=== PATIENT | male | born 1960 | race Caucasian/White ===

== ENCOUNTER 2020-04-07 10:48 | Observation (INO) | payer OTHER, SELFPAY ==
[2020-04-07] VITALS (12 sets, daily range): BP systolic 126–165; BP diastolic 66–103; PULSE 56–83; RESP 12–20; TEMP 36.6–37.1; O2SAT 62–100; BMI 57.4; BMI 56.2; BMI 56.3
--- NOTE | 2020-04-07 11:07 | EKG12_ITS ---
Test Reason : CP Blood Pressure : / mmHG Vent. Rate : 053 BPM Atrial Rate : 053 BPM P-R Int : 180 ms QRS Dur : 092 ms QT Int : 430 ms P-R-T Axes : 040 -46 003 degrees QTc Int : 403 ms Sinus bradycardia Left anterior fascicular block Abnormal ECG Confirmed by FLORINA DELAROSA, KUSUM ([id number]), news videotape editor JOSE FRY ([id number]) on 04/08/2020 12:58:42 PM Referred By: Confirmed By:STACEY DU MD
--- NOTE | 2020-04-07 11:14 | ED.VIS.CHEST ---
History of Present Illness Chief Complaint: Back Informant: Patient Onset: Days - 4 Activity at onset: Light Activity, Rest - this AM Timing: Intermittent, Lasts - not sure Quality: - - discomfort Location: - - upper mid abd / lower mid chest Current Severity: Gone Maximum Severity: Mild Worsened By: - - unknown. Not Worsened By: Breathing Relieved By: Nothing Associated Symptoms: Nausea, Diaphoresis, Lightheadedness, - - left arm aching. Negative for: Cough, Fever, Acid Reflux Narrative: Patient states he has been having episodes of discomfort and basically points to his entire mid torso, for the past 3 to 4 days. He states that he was just feeling very poorly and went to [facility] emergency room, he said he had at least one CT scan in addition to blood work and they wanted to send him to [facility] for further heart evaluation but he refused and went home. He started feeling more poorly this morning along with aching in his jaw and left upper extremity and sweating which is new, he states he has been having low back discomfort in his left low back for 1 week of unknown cause, no injury that he knows of and it does not necessarily get worse with moving around, no radiation down his leg or upper back discomfort, none of it is pleuritic. He had no urinary symptoms until this morning he had dysuria. No hematuria. He tested negative for Covid 3 days ago at [facility]. CVD Risk Factors: Hypertension, Diabetes PE Risk Factors: Negative for: Recent Travel/Surgery, Recenet Immobilization, Prior DVT or PE, Cancer, OCP + Smoking + >/=35 - Past Medical History (1) GERD (gastroesophageal reflux disease) Status: Chronic (2) Hiatal hernia Status: Chronic (3) Hypertension Status: Chronic (4) Type II diabetes mellitus Status: Chronic Past Medical History - Allergies and Home Meds Allergies/Adverse Reactions: Allergies No Known Allergies Allergy (Verified 04/07/20 10:49) Primary Care Physician: Stoney Horn MD [Primary Care Provider] - Surgical History: noncontributory Smoking Status: Unknown if ever smoked - Family History Maternal Family History: Reports: Hypertension Paternal Family History: Reports: No pertinent history Sibling Family History: Reports: Heart Disease, - - His younger brother had heart attack in his 40s. Review of Systems General: Reports: Malaise, Sweats. Denies: Chills, Fever Eyes: Denies: Visual changes - bilaterally, Diplopia ENT: Denies: Bilateral ear pain, Rhinorrhea, Sore throat Cardiovascular: Reports: Chest pain. Denies: Palpitations Respiratory: Denies: Dyspnea, Cough, Dyspnea on exertion Gastrointestinal: Reports: Abdominal pain, Nausea. Denies: Vomiting, Diarrhea, Melena, Hematochezia Genitourinary: Denies: Dysuria, Hematuria, Frequency Musculoskeletal: Reports: Back pain. Denies: Myalgias, Swelling, Extremity Pain Skin: Denies: Rash, Wounds Neurological: Reports: Headache. Denies: Weakness, Numbness Physical Exam Vital Signs/Narrative: Vital Signs Temp Pulse Resp BP Pulse Ox 04/07/20 10:49 97.9 F 65 17 139/89 H 99 Inital Vital Signs reviewed: Yes General: Well nourished, Well developed, Obese, No Acute Distress Head: Normocephalic, Atraumatic Eyes: Perrl, EOMI ENT: Moist mucous membranes, No rhinorrhea Neck: Supple, Nontender Cardiovascular: Regular rate, Regular rhythm, No murmurs Respiratory: No distress, CTA bilaterally, Chest nontender Abdomen: Soft, Nontender, Nondistended, Normal bowel sounds. Negative for: Pulsatile mass Back: Normal Inspection, - - Mildly point tender, left paraspinal lumbosacral soft tissues below the pelvic brim. Negative for: CVA tenderness, Spinal tenderness Extremities: Nontender, No edema. Negative for: Calf Tenderness Skin: Normal color, No rash, No Trauma Neurological: Alert, Oriented x3, Cranial nerves II-XII grossly intact, Normal Strength, Normal Sensation, Normal Gait Psychological: Normal affect, Normal Mood Diagnostic/Tx/Re-eval 04/07/20 11:50 Chest 1 View (Portable) [RAD] Stat Laboratory Results 04/07/20 04/07/20 04/07/20 11:00 11:30 11:30 WBC 9.4 RBC 4.54 L Hgb 13.3 Hct 42.3 MCV 93.2 MCH 29.3 MCHC 31.4 L RDW Std Deviation 47.3 H RDW Coeff of Vanesa 13.9 Plt Count 255 MPV 10.3 Immature Gran % (Auto) 0.400 Neut % (Auto) 78.3 H Lymph % (Auto) 12.0 L Angelina % (Auto) 7.9 Eos % (Auto) 0.9 Baso % (Auto) 0.5 Absolute Neuts (auto) 7.4 Absolute Lymphs (auto) 1.13 Nucleated RBC % 0 APTT 28.0 Sodium Potassium Chloride Carbon Dioxide Anion Gap BUN Creatinine Estim Creat Clear Calc Est GFR (MDRD) Af Amer Est GFR (MDRD) Non-Af BUN/Creatinine Ratio Glucose Calcium Troponin I Urine Color Yellow Urine Clarity Clear Urine pH 5.0 Ur Specific Viking 1.020 Urine Protein 15 H Urine Glucose (UA) Normal Urine Ketones 5 H Urine Occult Blood 10 H Urine Nitrite Negative Urine Bilirubin Negative Urine Urobilinogen Normal Ur Leukocyte Esterase 500 H Urine RBC 0 SEEN Urine WBC 50-100 SEEN Ur Squamous Epith Cells 0 SEEN Urine Bacteria 2+ Urine Mucus 0 SEEN 04/07/20 11:30 WBC RBC Hgb Hct MCV MCH MCHC RDW Std Deviation RDW Coeff of Vanesa Plt Count MPV Immature Gran % (Auto) Neut % (Auto) Lymph % (Auto) Angelina % (Auto) Eos % (Auto) Baso % (Auto) Absolute Neuts (auto) Absolute Lymphs (auto) Nucleated RBC % APTT Sodium 140 Potassium 3.9 Chloride 108 H Carbon Dioxide 26.0 Anion Gap 6 BUN 12 Creatinine 1.15 Estim Creat Clear Calc 69.65 Est GFR (MDRD) Af Amer 83 Est GFR (MDRD) Non-Af 69 BUN/Creatinine Ratio 10.4 Glucose 111 H Calcium 9.0 Troponin I < 0.015 Urine Color Urine Clarity Urine pH Ur Specific Viking Urine Protein Urine Glucose (UA) Urine Ketones Urine Occult Blood Urine Nitrite Urine Bilirubin Urine Urobilinogen Ur Leukocyte Esterase Urine RBC Urine WBC Ur Squamous Epith Cells Urine Bacteria Urine Mucus - Rhythm Strip Rhythm Strip: Sinus Rhythm Rate: 53 Ectopy: None - EKG Initial EKG Interpretation: Sinus Rhythm, No Acute Injury Pattern, LAFB Prior: Unchanged Treatment: Aspirin, - - rocephin BELEN Risk: >/= 3RF, Severe Angina </=24 hours Score: 2 - Medical Decision Making Patient's urine does appear to be infected, however I do not know that this infection is necessarily causing his thoracic symptoms and discomfort in his left arm. Certainly anginal equivalent is possible here, and his left low back pain could be caused by urinary tract infection or certainly could be musculoskeletal since it is lower than his kidney and is reproducible with palpation on my exam, and he does not necessarily have pyelonephritis on my exam. Antibiotics were started, urine culture was sent, and I think admitting him to observation for a rule out plus or minus provocative testing would be reasonable. After nitroglycerin, the patient has no more arm discomfort, jaw discomfort, chest, or epigastric discomfort. He just has the low back discomfort which is not severe. ED Disposition - Plan for ED Patient: Disposition: Acute Care Hospital [facility] Diagnosis: Chest pain, unspecified, Urinary tract infection Referrals: Stoney Horn MD [Primary Care Provider] -
[2020-04-07] MEDS: Aspirin 81 MG TAB.CHEW 324 MG PO (11:24)
[2020-04-07] MEDS: Ondansetron 4 MG/2 ML Vial IV (11:31)
[2020-04-07] MEDS: 0.9% Normal Saline 1,000 ML 150 ML IV (11:32)
[2020-04-07 11:46] LABS: Mucous, Urine 0 SEEN /hpf (<or=2+); Red Blood Cells-Urine 0 SEEN /hpf (0-5); Squamous Epithelial Cells - UA 0 SEEN /hpf (0-5)
[2020-04-07 11:48] LABS: Color, Urine Yellow (Yellow); Glucose, Dipstick Normal (Normal); Ketone-Dipstick 5 mg/dl (Negative); Leukocyte Esterase-Dipstick 500 /ul (Negative); Nitrite-Dipstick Negative (Negative); Occult Blood-Urine 10 /ul (Negative); Protein-Dipstick 15 mg/dl (Negative); Urine Bilirubin Dipstick Negative (Negative); Urine Clarity Clear (Clear); Urine Urobilinogen Normal (Normal)
--- NOTE | 2020-04-07 11:50 | RAD_ITS ---
STUDY: X-RAY CHEST REASON FOR EXAM: Male, 59 years old. CHEST AND LEFT ARM PAIN TECHNIQUE: Frontal view of the chest COMPARISON: May 23 2014 FINDINGS: Examination is technically suboptimal due to patient''s large body habitus. The lungs are clear and expanded. There is no demonstrated pleural abnormality. Normal size heart. Normal mediastinum and mckenna. Normal visualized pulmonary arteries. Normal visualized aortic arch and descending thoracic aorta. Normal visualized thoracic spine. Normal visualized ribs, clavicles, and shoulders. There is no demonstrated abnormality of the visualized soft tissue structures of the upper abdomen. RAD/Chest 1 View (Portable) IMPRESSION: Normal x-ray examination of the chest. Electronically Signed: Susan Lantigua, at 12:29 EST Tel , Service support ,
[2020-04-07 11:55] LABS: Bacteria 2+ /hpf (None Seen); White Blood Cells 50-100 SEEN /hpf (0-5)
[2020-04-07 11:55] LABS: Absolute Lymphocyte Count 1.13 X10^3/uL (0.83-4.51); Absolute Neutrophil Count 7.4 X10^3/uL (2.0-7.7); Basophil# 0.05 X10^3/uL; Basophil% 0.5 % (0-1); Eosinophil# 0.08 X10^3/uL; Eosinophils% 0.9 % (0-5); Hematocrit 42.3 % (40-54); Hemoglobin 13.3 g/dL (13.0-16.5); Lymphocyte # 1.13 X10^3/ul (4.0); Mean Corp Hgb Conc 31.4 g/dL (32-36); Mean Corpuscular Hgb 29.3 pg (27.0-32.0); Mean Corpuscular Volume 93.2 fL (80-94); Mean Platelet Vol. 10.3 fl (6.2-12.0); Monocyte# 0.74 X10^3/uL; Monocyte% 7.9 % (0-10); NRBC Flagged by Analyzer 0 % (0-5); Neutrophil # 7.37 X10^3/uL (2.7-7.7); Neutrophil % 78.3 % (47-70); Platelet Count 255 K/mm3 (150-450); RBC Distribution Width CV 13.9 % (11.6-14.6); RBC Distribution Width SD 47.3 fl (35.1-43.9); Red Blood Count 4.54 M/mm3 (4.6-6.2); White Blood Count 9.4 K/mm3 (4.4-11.0)
[2020-04-07 12:14] LABS: Anion Gap 6 (5-15); BUN 12 mg/dL (7-18); BUN/Creat Ratio 10.4 RATIO (10-20); Chloride 108 mmol/L (98-107); Creatinine, Serum 1.15 mg/dL (0.70-1.30); EST Glomerular Filtration Rate 69 mL/min (>60); Est Glom Filt Rate - Afr Amer 83 mL/min (>60); Estimated Creatinine Clearance 69.65 ml/min; Glucose 111 mg/dL (74-106); Potassium 3.9 mmol/L (3.5-5.1); Sodium Level 140 mmol/L (136-145)
--- NOTE | 2020-04-07 12:54 | NURSING ---
125 alicia obs cp, uti
[2020-04-07] MEDS: Ceftriaxone 1 GM/50 ML BAG IV (12:55)
--- NOTE | 2020-04-07 14:23 | HP.PCM_ITS ---
Problem List (1) Chest pain Status: Acute (2) Urinary tract infection Status: Acute (3) GERD (gastroesophageal reflux disease) Status: Chronic (4) Hiatal hernia Status: Chronic (5) Hypertension Status: Chronic (6) Type II diabetes mellitus Status: Chronic History of Present Illness Date of Admission: 04/07/20 Chief Complaint: Chest pain The patient is a 59 year old M with past medical history of type 2 diabetes, morbid obesity, hypertension, GERD, hiatal hernia, who presented to the emergency room with chief complaint of chest pain. He has had worsening of associated chest pain that he states began in the evening after eating a cheeseburger. Patient has also complained of ongoing lower back pain in the left paraspinal L1-L2 region that has been going ion since Sunday. He went to the ER in [place] sunday and states he had blood work done and was sent home. Patient initially presented patient describes his chest pain as mid lower chest/midepigastric aching that is constant. He does have some SOB at rest, however his symptoms are not worse with exertion. Yesterday he had a brief episode of heavy sweating. He is concerned he may have heart problems as his two brothers had FL's - the younger brothers age was in the late 40's and the other in his 50s. The patient denies personal heart dz hx. He last had a stress test about 3 years ago that he states was negative. The patient was found to have a UTI in the ER and does report burning with urination and urinary frequency. He does not report dribbling, difficulty emptying, or increased nocturnal urination. No rectal pain. No fever/chills.[] Past Medical History Past Medical History (Chronic Problems): Chronic Problems GERD (gastroesophageal reflux disease) (Chronic) Hiatal hernia (Chronic) Type II diabetes mellitus (Chronic) Hypertension (Chronic) Allergies No Known Allergies Allergy (Verified 04/07/20 10:49) Home Medications: Ambulatory Orders Medication Instructions Recorded Esomeprazole Mag Trihydrate 20 mg PO DAILY 01/02/14 [Nexium] Lisinopril [Zestril] 40 mg PO DAILY 01/02/14 Metoprolol Tartrate [Lopressor 25 mg PO BID 01/02/14 (beta walter)] Pioglitazone [Actos] 15 mg PO DAILY 01/02/14 Aspirin [Aspirin, Baby] 81 mg PO BID 01/03/14 Multivitamins,Therapeutic 1 tablet PO DAILY 01/03/14 [Multivitamin] Nitroglycerin (INPATIENT USE) 0.4 mg SUBLINGUAL Q5M PRN #1 bottle 01/03/14 [Nitrostat] Esomeprazole Mag Trihydrate 40 mg PO QHS 04/07/20 [Nexium] Niacin 500 mg PO QHS 04/07/20 Surgical History: tonsillectomy Psychiatric History: No pertinent psych hx Lives: Spouse/ Significant Other Smoking Status: Former smoker Tobacco Use: Non-smoker - quit 40 years ago, smoked about 3 years. Alcohol: Occasional Drugs: None - *Family History Maternal History Items: Hypertension, - - aneurysm Paternal History Items: - - aneurysm Sibling History Items: Heart Disease - younger brother FL in late 40s, other brother FL in 50s Review of Systems Constitutional: Denies: Chills, Fever, Weight Change HEENT: Denies: Head Aches, Sinus Congestion, Sinus Drainage Cardiovascular: Reports: Chest Pain. Denies: Edema, Heaviness, Light He adedness, Palpitations Respiratory: Reports: Shortness of Breath, Shortness of breath at rest. Denies: Cough, Sputum production Gastrointestinal: Denies: Abdominal Pain, Dyspepsia, Nausea, Vomiting Genitourinary: Reports: Dysuria, Frequency. Denies: Hematuria, Hesitancy, Nocturia, Retention Musculoskeletal: Reports: - - lumbar left paraspinal pain. Denies: Joint Pain, Joint Tenderness Skin: Denies: Lesions, Rash, Wounds Neurological: Denies: Numbness, Tingling, Focal weakness Psychiatric: Denies: Anxiety, Depression, Homicidal Ideations, Suicidal Ideations Hematologic/ Lymphatic: Denies: Easy Bruising, Easy Bleeding VTE Information - Inpt Only VTE Present on Admission: No VTE Mechan Device Prophylaxis: None VTE Pharm Prophylaxis ordered?: Yes Patient Problems: Active and Suspected Problems Urinary tract infection (Acute) Chest pain (Acute) - Physical Exam Vitals/I&O's: Vital Signs Temp Pulse Resp BP Pulse Ox 98.3 F 83 20 H 165/83 H 100 04/07/20 13:36 04/07/20 13:36 04/07/20 13:36 04/07/20 13:36 04/07/20 13:36 Oxygen Delivery Method Room Air Weight: 392 lb 4 oz Body Mass Index (BMI) 56.2 Intake and Output for Last 24 Hours 04/05/20 04/06/20 04/07/20 23:59 23:59 23:59 Intake Total 50 / 50 Balance 50 / 50 General: Alert, Oriented x3, Cooperative HEENT: Atraumatic, PERRLA, EOMI, Normocephalic Neck: Supple, No JVD, Negative Carotid Bruits Lungs: Clear to auscultation, Normal air movement Cardiovascular: Regular rate, No murmurs Abdomen: Bowel Sounds Present, Soft, Non Tender Extremities: No edema, Capillary Refill Less than 3 Seconds Skin: No rashes, No breakdown Musculoskeletal: No Tenderness to Palpation of Joints or Extremities Neurological: Cranial nerves II-XII grossly intact Psych/Mental Status: Normal Affect, Appropriate Laboratory Results 04/07/20 11:00: Urine Color Yellow, Urine Clarity Clear, Urine pH 5.0, Ur Specific [place] 1.020, Urine Protein 15 H, Urine Glucose (UA) Normal, Urine Ketones 5 H, Urine Occult Blood 10 H, Urine Nitrite Negative, Urine Bilirubin Negative, Urine Urobilinogen Normal, Ur Leukocyte Esterase 500 H, Urine RBC 0 SEEN, Urine WBC 50-100 SEEN, Ur Squamous Epith Cells 0 SEEN, Urine Bacteria 2+, Urine Mucus 0 SEEN 04/07/20 11:30: WBC 9.4, RBC 4.54 L, Hgb 13.3, Hct 42.3, MCV 93.2, MCH 29.3, MCHC 31.4 L, RDW Std Deviation 47.3 H, RDW Coeff of Vanesa 13.9, Plt Count 255, MPV 10.3, Immature Gran % (Auto) 0.400, Neut % (Auto) 78.3 H, Lymph % (Auto) 12.0 L , Milam % (Auto) 7.9, Eos % (Auto) 0.9, Baso % (Auto) 0.5, Absolute Neuts (auto) 7.4, Absolute Lymphs (auto) 1.13, Nucleated RBC % 0 04/07/20 11:30: APTT 28.0 04/07/20 11:30: Sodium 140, Potassium 3.9, Chloride 108 H, Carbon Dioxide 26.0, Anion Gap 6, BUN 12, Creatinine 1.15, Estim Creat Clear Calc 69.65, Est GFR (MDRD) Af Amer 83, Est GFR (MDRD) Non-Af 69, BUN/Creatinine Ratio 10.4, Glucose 111 H, Calcium 9.0, Troponin I < 0.015 Current Medications Acetaminophen (Acetaminophen 325 Mg Tablet) 650 mg PO Q6H PRN PRN PRN Reason: Pain Score 1-10/Temp > 100.7 F Hydrocodone Bitart/Acetaminophen (Hydrocodone Bitartrate/Apap 5/325 Tablet) 1 - 2 tablet PO Q4H PRN PRN PRN Reason: P Aspirin (Aspirin 81 Mg Tab.Chew) 81 mg PO DAILY@0800 HENRY Cephalexin (Cephalexin 500 Mg Capsule) 500 mg PO Q8 HENRY Lisinopril (Lisinopril 40 Mg Tablet) 40 mg PO DAILY HENRY Metoprolol Tartrate (Metoprolol Tartrate 25 Mg Tablet) 25 mg PO BID HENRY Morphine Sulfate (Morphine 4 Mg/Ml Syringe) 4 mg IV Q3H PRN PRN PRN Reason: Pain Score 6-10 Ondansetron HCl (Ondansetron 4 Mg/2 Ml Vial) 4 mg IV Q8H PRN PRN PRN Reason: NAUSEA/VOMITING Pantoprazole Sodium (Pantoprazole Sodium 40 Mg Tablet) 40 mg PO BID HENRY Pioglitazone HCl (Pioglitazone Hydrochloride 15 Mg Tablet) 15 mg PO DAILY HENRY Sodium Chloride (0.9% Saline Lock 10 Ml Syringe) 10 - 40 ml IV UD PRN PRN Reason: SALINE FLUSH Assessment/Plan All Active Problems Urinary tract infection (Acute) Chest pain (Acute) 1. Chest pain - risk factors include hx HTN, T2DM, family hx. Pain is mid epigastric and started after eating a cheeseburger so this may be related to his hiatal hernia and GERD hx. Trop is negative. EKG with left fasicular block otherwise no acute ischemic changes. Will admit to PCU on tele, cycle enzymes, obtain stress in AM, AM EKG, FLP in AM. Start daily aspirin, continue metoprolol, lisinopril. 2. Acute UTI - + UA with increased dysuria and frequency. Denies increased night time urination and dribbling. Obtain culture. Continue keflex. No fever/leukocytosis, no CVA tenderness and no rectal pain. 3. 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 GERD/Hiatal hernia - continue BID PPI 5. HTN - stable 6. Back pain - left lumbar tenderness with muscle spasms - tylenol, flexeril. DVT ppx: lovenox This patient was seen by Hany Guevara PA-C under the supervision of Doctor Pacheco.
--- NOTE | 2020-04-07 14:43 | EKG12_ITS ---
Test Reason : Blood Pressure : / mmHG Vent. Rate : 053 BPM Atrial Rate : 053 BPM P-R Int : 186 ms QRS Dur : 094 ms QT Int : 436 ms P-R-T Axes : 044 -42 000 degrees QTc Int : 409 ms Sinus bradycardia Left axis deviation Poor R wave progression Abnormal ECG Confirmed by TORIN DELAROSA, CLAIRE ([id number]), video news editor JARRED NEVILLE ([id number]) on 04/12/2020 2:35:16 PM Referred By: TAMMY Confirmed By:CLAIRE HARKINS MD
[2020-04-07 16:42] LABS: Hemoglobin A1c 5.8 % (3.8-5.6)
[2020-04-07] MEDS: HYDROcodone Bitartrate/Apap 5/325 Tablet PO ×2 (19:45→21:23)
[2020-04-07] MEDS: Pantoprazole Sodium 40 MG Tablet PO (21:20)
[2020-04-07] MEDS: Metoprolol Tartrate 25 MG Tablet PO (21:20)
[2020-04-08 03:15] VITALS: BP 116/64; PULSE 60; RESP 14; TEMP 36.8; O2SAT 96
--- NOTE | 2020-04-08 05:55 | EKG12_ITS ---
Test Reason : AM EKG Blood Pressure : / mmHG Vent. Rate : 060 BPM Atrial Rate : 060 BPM P-R Int : 186 ms QRS Dur : 094 ms QT Int : 424 ms P-R-T Axes : 000 228 179 degrees QTc Int : 424 ms Consider Limb Lead Misplacement Recommend Repeat EKG Confirmed by TORIN DELAROSA, CLAIRE ([id number]), editorial writer JARRED NEVILLE ([id number]) on 04/12/2020 2:44:19 PM Referred By: DR Espinal Confirmed By:CLAIRE HARKINS MD
[2020-04-08 06:21] VITALS: BP 155/86; PULSE 64; RESP 16; TEMP 37.3; O2SAT 97
[2020-04-08] MEDS: Cephalexin 500 MG Capsule PO ×2 (06:27→15:04)
[2020-04-08 06:28] VITALS: PULSE 64
[2020-04-08] MEDS: Metoprolol Tartrate 25 MG Tablet PO (06:28)
[2020-04-08] MEDS: Aspirin 81 MG TAB.CHEW PO (06:28)
[2020-04-08 06:36] VITALS: PULSE 83
[2020-04-08 06:58] LABS: Cholesterol 156 mg/dL (200); High Density Lipoprotein 44 mg/dL; Triglycerides 158 mg/dL; Very Low Density Lipoprotein 32 mg/dL (5-40)
[2020-04-08] MEDS: Acetaminophen 325 MG Tablet 650 MG PO (07:27)
[2020-04-08] MEDS: Lisinopril 40 MG Tablet PO (07:28)
[2020-04-08] MEDS: Pantoprazole Sodium 40 MG Tablet PO (11:37)
[2020-04-08] MEDS: HYDROcodone Bitartrate/Apap 5/325 Tablet PO (11:37)
[2020-04-08] MEDS: Pioglitazone Hydrochloride 15 MG Tablet PO (11:37)
[2020-04-08 12:00] VITALS: BP 148/73; PULSE 67; RESP 18; TEMP 36.5; O2SAT 96
--- NOTE | 2020-04-08 12:09 | STRESSREP ---
Stress Test Report Date: 04/08/2020 Procedure: Pharmacologic stress nuclear imaging study Indications: Chest pain Consent: Per the patient Procedure: The patient underwent pharmacologic (Regadenoson) evaluation with a peak heart rate of 97 beats per minute (61%predicted maximal heart rate) and a peak blood pressure of 132/92 mmHg. The baseline ECG demonstrated normal sinus rhythm. EKG during lexiscan infusion revealed no significant ischemic changes. EKG post infusion revealed no significant ischemic changes [There were no cardiac dysrhythmias pretest, during pharmacologic infusion, or recovery]. [There was no complaint of chest discomfort during pharmacologic infusion or recovery]. The examination was discontinued secondary to completion of protocol. Impression: 1. Lexiscan stress test test is negative for Lexiscan infusion induced EKG changes of ischemia. 2. Lexiscan stress test test is negative for Lexiscan infusion induced chest pain. 3. Results of the nuclear portion of the test is as below Myocardial perfusion imaging study: Technique: The patient was injected with 15 millicuries of technetium 99m Cardiolite and subsequently rest SPECT Cardiolite nuclear imaging was obtained in the horizontal long, vertical long, and short axis views. The patient underwent pharmacologic (Regadenoson) evaluation. Please see above for details. The patient was injected with 44.6 millicuries of technetium 99m Cardiolite and subsequently stress SPECT Cardiolite nuclear imaging was obtained in the horizontal long, vertical long, and short axis views. A gated Cardiolite study at peak stress was obtained. Interpretation: Rest and stress SPECT Cardiolite nuclear imaging status post realignment, normalization, and attenuation correction demonstrate mild to moderately decreased radioisotope uptake in the apex that improved significantly on the stress images. There is no evidence of significant ischemia or infarction. Gated images reveal no significant regional wall motion abnormalities. The reported LVEF is 68%. Impression: 1. There is no evidence of significant ischemia or infarction. 2. Estimated ejection fraction is 68%. This note was generated with ClassDojo[employer] software. It may contain incorrect words, spelling, and punctuation that were not noted in checking the note before signing.
--- NOTE | 2020-04-08 12:24 | PCM.DC ---
- Discharge Diagnoses Current Active Problems: Current Active and Chronic Problems Urinary tract infection (Acute) GERD (gastroesophageal reflux disease) (Chronic) Chest pain (Acute) Hiatal hernia (Chronic) Type II diabetes mellitus (Chronic) Hypertension (Chronic) You will use the following diet at home:: Cardiac Discharge Activity: Return to Normal Activity Call your doctor if you observe: Shortness of breath, Dizziness, Fainting spells, Chest pain Allergies/Adverse Reactions: Allergies No Known Allergies Allergy (Verified 04/07/20 10:49) Medications to take at Discharge Esomeprazole Mag Trihydrate [Nexium] 20 mg PO DAILY 01/02/14 Lisinopril [Zestril] 40 mg PO DAILY 01/02/14 Metoprolol Tartrate [Lopressor (beta walter)] 25 mg PO BID 01/02/14 Pioglitazone [Actos] 15 mg PO DAILY 01/02/14 Aspirin [Aspirin, Baby] 81 mg PO BID 01/03/14 Multivitamins,Therapeutic [Multivitamin] 1 tablet PO DAILY 01/03/14 Nitroglycerin (INPATIENT USE) [Nitrostat] 0.4 mg SUBLINGUAL Q5M PRN #1 bottle 01/03/14 Esomeprazole Mag Trihydrate [Nexium] 40 mg PO QHS 04/07/20 Niacin 500 mg PO QHS 04/07/20 Cephalexin [Keflex] 500 mg PO Q8 #15 cap 04/08/20 The following prescriptions were given: Cephalexin [Keflex] 500 mg PO Q8 #15 cap Transmission Status: Pending to [id number] Primary Care Physician: Stoney Horn MD [Primary Care Provider] - Please follow up with your Primary Care Physician in: 1 Week Test Results: Test results from this visit will be discussed in further detail at your follow-up appointment, if applicable. Proposed Discharge Date: 04/08/20
--- NOTE | 2020-04-08 12:32 | RAD_ITS ---
STUDY: X-RAY - LUMBAR SPINE REASON FOR EXAM: Male, 59 years old. LOW BACK PAIN, NO INJURY TECHNIQUE: 3 view(s) of the lumbar spine were obtained. COMPARISON: None FINDINGS: Normal lumbar lordosis. There is no substantial scoliosis. There is a normal alignment of the vertebrae. There is endplate spondylosis of the lumbar vertebrae. Normal disc space heights. Phleboliths. RAD/Lumbar Spine 2 or 3 Views IMPRESSION: Degenerative changes of the spine, as detailed above. Electronically Signed: Sebas Peacock, at 14:08 EST , Service support ,
--- NOTE | 2020-04-08 12:33 | DS.PCM_ITS ---
Discharge Date and Diagnosis - Problem List Patient Problems: Active and Suspected Problems Urinary tract infection (Acute) Chest pain (Acute) Date of Admission: 04/07/20 Date of Discharge: 04/08/20 - Primary Discharge Diagnosis Acute Problems: Active Problems 1. Musculoskeletal chest pain 2. Acute UTI 3. Type 2 diabetes mellitus 4. GERD/hiatal hernia 5. Hypertension 6. Lumbar back pain - Secondary Discharge Diagnosis Chronic Problems: Chronic Problems GERD (gastroesophageal reflux disease) (Chronic) Hiatal hernia (Chronic) Type II diabetes mellitus (Chronic) Hypertension (Chronic) Hospital Course and Treatment Imaging Results: Diagnostic Data Chest X-Ray 04/07/20 11:50 IMPRESSION: Normal x-ray examination of the chest. Electronically Signed: Susan Lantigua, at 12:29 EST Tel , Service support , Operations: None Procedures: Stress test Summary of Care Provided: The patient is a 59 year old M admitted 04/07/2020 due to chest pain. 1. Musculoskeletal chest pain-EKG without ST-T changes. Troponin negative. Patient underwent stress test which was negative for ischemia, gated ejection fraction 68%. Continue daily aspirin. Follow-up with PCP in 1 week. 2. Acute UTI-urine culture growing GNR greater than 100,000 colony count. IV Rocephin during admission. Transition to Keflex to complete course at discharge. 3. Type 2 diabetes mellitus-continue Actos regimen. Hemoglobin A1c 5.8%. 4. GERD/hiatal hernia-continue Nexium regimen. 5. Hypertension-stable, continue lisinopril, metoprolol. 6. Lumbar back strain-lower back pain reproducible. Patient adamant on lumbar x-ray prior to discharge. Results pending at discharge. Patient will need follow-up with PCP. He may use as needed Tylenol/Advil for muscle strain. 7. Morbid obesity-BMI 56. Encourage diet and lifestyle applications. Patient seen and examined prior to discharge. Physical assessment as noted below. Patient is stable for discharge with follow up recommendations as noted above. This patient was seen by ALLYSON Justin under the supervision of Dr. Pacheco. Patient Problems: Active and Suspected Problems Urinary tract infection (Acute) Chest pain (Acute) - Physical Exam Vitals/I&O's: Vital Signs Temp Pulse Resp BP Pulse Ox 97.7 F L 67 18 148/73 H 96 04/08/20 12:00 04/08/20 12:00 04/08/20 12:00 04/08/20 12:00 04/08/20 12:00 Oxygen Flow Rate (L/min) 94 Oxygen Delivery Method Room Air Weight: 392 lb 4 oz Body Mass Index (BMI) 56.2 Intake and Output for Last 24 Hours 04/06/20 04/07/20 04/08/20 23:59 23:59 23:59 Intake Total 927.5 / 927.5 Balance 927.5 / 927.5 General: Alert, Oriented x3, Cooperative HEENT: Atraumatic, PERRLA, EOMI, Normocephalic Neck: Supple, No JVD, Negative Carotid Bruits Lungs: Clear to auscultation, Normal air movement Cardiovascular: Regular rate, No murmurs Abdomen: Bowel Sounds Present, Soft, Non Tender, Non-Distended, Obese Extremities: No clubbing, No cyanosis, No edema, Capillary Refill Less than 3 Seconds Skin: No rashes, No breakdown Musculoskeletal: No Tenderness to Palpation of Joints or Extremities Neurological: Cranial nerves II-XII grossly intact, Neuro grossly intact Psych/Mental Status: Normal Affect, Appropriate Microbiology Past 72 Hours 04/07/20 11:00 Urine, Clean Catch Urine Culture - Preliminary GNR lactose scale shooter Laboratory Results 04/07/20 11:30: Hemoglobin A1c 5.8 H 04/07/20 14:40: Troponin I < 0.015 04/07/20 17:57: Troponin I < 0.015 04/08/20 05:15: Triglycerides 158, Cholesterol 156, LDL Cholesterol 80, VLDL Cholesterol 32, HDL Cholesterol 44 Current Medications Acetaminophen (Acetaminophen 325 Mg Tablet) 650 mg PO Q6H PRN PRN PRN Reason: Pain Score 1-10/Temp > 100.7 F Last Admin: 04/08/20 07:27 Dose: 650 mg Documented by: Hydrocodone Bitart/Acetaminophen (Hydrocodone Bitartrate/Apap 5/325 Tablet) 1 - 2 tablet PO Q4H PRN PRN PRN Reason: pain, 4-10 Last Admin: 04/08/20 11:37 Dose: 2 tablet Documented by: Aspirin (Aspirin 81 Mg Tab.Chew) 81 mg PO DAILY@0800 [facility] Last Admin: 04/08/20 06:28 Dose: 81 mg Documented by: Cephalexin (Cephalexin 500 Mg Capsule) 500 mg PO Q8 [facility] Last Admin: 04/08/20 06:27 Dose: 500 mg Documented by: Cyclobenzaprine HCl (Cyclobenzaprine Hcl 10 Mg Tablet) 10 mg PO TID PRN PRN PRN Reason: MUSCLE SPASM Lidocaine (Lidocaine 5% Patch) 1 patch TOPICAL DAILY [facility]; Protocol Last Admin: 04/08/20 11:32 Dose: Not Given Documented by: Lisinopril (Lisinopril 40 Mg Tablet) 40 mg PO DAILY [facility] Last Admin: 04/08/20 07:28 Dose: 40 mg Documented by: Metoprolol Tartrate (Metoprolol Tartrate 25 Mg Tablet) 25 mg PO BID [facility] Last Admin: 04/08/20 06:28 Dose: 25 mg Documented by: Morphine Sulfate (Morphine 4 Mg/Ml Syringe) 4 mg IV Q3H PRN PRN PRN Reason: Pain Score 6-10 Ondansetron HCl (Ondansetron 4 Mg/2 Ml Vial) 4 mg IV Q8H PRN PRN PRN Reason: NAUSEA/VOMITING Pantoprazole Sodium (Pantoprazole Sodium 40 Mg Tablet) 40 mg PO BID [facility] Last Admin: 04/08/20 11:37 Dose: 40 mg Documented by: Pioglitazone HCl (Pioglitazone Hydrochloride 15 Mg Tablet) 15 mg PO DAILY [facility] Last Admin: 04/08/20 11:37 Dose: 15 mg Documented by: Sodium Chloride (0.9% Saline Lock 10 Ml Syringe) 10 - 40 ml IV UD PRN PRN Reason: SALINE FLUSH Discharge Diet: Low fat/ Low Cholesterol, Carb Control Diet Discharge Activity: Return to Normal Activity Call your doctor if you observe: Shortness of breath, Dizziness, Fainting spells, Chest pain Home Medications: Medications to take at Discharge Esomeprazole Mag Trihydrate [Nexium] 20 mg PO DAILY 01/02/14 Lisinopril [Zestril] 40 mg PO DAILY 01/02/14 Metoprolol Tartrate [Lopressor (beta walter)] 25 mg PO BID 01/02/14 Pioglitazone [Actos] 15 mg PO DAILY 01/02/14 Aspirin [Aspirin, Baby] 81 mg PO BID 01/03/14 Multivitamins,Therapeutic [Multivitamin] 1 tablet PO DAILY 01/03/14 Nitroglycerin (INPATIENT USE) [Nitrostat] 0.4 mg SUBLINGUAL Q5M PRN #1 bottle 01/03/14 Esomeprazole Mag Trihydrate [Nexium] 40 mg PO QHS 04/07/20 Niacin 500 mg PO QHS 04/07/20 Cephalexin [Keflex] 500 mg PO Q8 #15 cap 04/08/20 Following Prescriptions Were Given to Patient: Cephalexin [Keflex] 500 mg PO Q8 #15 cap Transmission Status: Pending to [id number] Primary Care Physician: Stoney Horn MD [Primary Care Provider] - Please follow up with your Primary Care Physician in: 1 Week Disposition: Home Minutes spent on discharge:: 35 Patient Condition:: Stable Medical Necessity - Tobacco Use Smoking Status: Former smoker Tobacco Use: Non-smoker Meaningful Use Info Meaningful Use Diagnoses (Choose all that apply): None applicable
[2020-04-08] MEDS: Ondansetron 4 MG/2 ML Vial IV (13:52)
[2020-04-08] MEDS: 0.9% Saline Lock 10 ML Syringe IV (13:52)
--- NOTE | 2020-04-08 14:06 | PHA.DC.MC ---
Pharmacy Service has performed discharge medication reconciliation and counseling for this patient. 1. CEPHALEXIN 500MG PO TID X 5 DAYS The patient's discharge medication list was reviewed for discrepancies and discrepancies were resolved. Home Medications Esomeprazole Mag Trihydrate [Nexium] 20 mg PO DAILY 01/02/14 Lisinopril [Zestril] 40 mg PO DAILY 01/02/14 Metoprolol Tartrate [Lopressor (beta walter)] 25 mg PO BID 01/02/14 Pioglitazone [Actos] 15 mg PO DAILY 01/02/14 Aspirin [Aspirin, Baby] 81 mg PO BID 01/03/14 Multivitamins,Therapeutic [Multivitamin] 1 tablet PO DAILY 01/03/14 Nitroglycerin (INPATIENT USE) [Nitrostat] 0.4 mg SUBLINGUAL Q5M PRN #1 bottle 01/03/14 Esomeprazole Mag Trihydrate [Nexium] 40 mg PO QHS 04/07/20 Niacin 500 mg PO QHS 04/07/20 Cephalexin [Keflex] 500 mg PO Q8 #15 cap 04/08/20 The patient was counseled on the following discharge medications and changes in medications for homegoing were reviewed. The Reason for Use, instructions for use, and potential side effects were reviewed for all new medications. The patient's questions regarding all of their medications were answered. The patient was able to verbally demonstrate an understanding of their discharge medications.
== END 2020-04-08 12:25 | disposition home or self-care (01) ==
LOC: ED 12:20 → PCU 13:03
PROVIDERS: Physician Assistant; Admitting Provider Internal Medicine; Emergency Provider Emergency Medicine; PCP Family Medicine; Visit Provider Internal Medicine
DX: R07.89 Other chest pain (principal); N39.0 Urinary tract infection, site not specified; K21.9 Gastro-esophageal reflux disease without esophagitis; E11.9 Type 2 diabetes mellitus without complications; I10 Essential (primary) hypertension; K44.9 Diaphragmatic hernia without obstruction or gangrene; S39.012A Strain of muscle, fascia and tendon of lower back, initial encounter; E66.01 Morbid (severe) obesity due to excess calories; R68.84 Jaw pain; M79.602 Pain in left arm; Z79.899 Other long term (current) drug therapy; Z79.82 Long term (current) use of aspirin; Z79.84 Long term (current) use of oral hypoglycemic drugs; Z87.891 Personal history of nicotine dependence; Z68.43 Body mass index [BMI] 50.0-59.9, adult; X58.XXXA Exposure to other specified factors, initial encounter; Y93.9 Activity, unspecified; Y92.9 Unspecified place or not applicable
CPT/HCPCS: 36415; 71045; 72100; 78452; 80048; 80061; 81001; 83036; 84484; 85025; 85730; 87077; 87086; 87088; 87186; 93005; 93017; 94660; 96361; 96365; 96375; 96376; 99218; 99285; 99406; A9500; J7030; A4216; G0378; J2405; J2785

== ENCOUNTER → 2023-05-02 | Outpatient (CLI) | payer BC, SELFPAY ==
--- NOTE | 2023-05-02 12:40 | RAD_ITS ---
STUDY: X-RAY CHEST REASON FOR EXAM: Male, 62 years old. Chest pain. TECHNIQUE: Frontal and lateral views of the chest. COMPARISON: April 2020 FINDINGS: The lungs are clear and expanded. There is no demonstrated pleural abnormality. Stable cardiomegaly. Normal mediastinum and mckenna. Normal visualized pulmonary arteries. Aortic tortuosity unchanged. Diffuse moderate thoracic spondylosis. Normal visualized ribs, clavicles, and shoulders. No abnormality of the visualized soft tissue structures of the upper abdomen. RAD/Chest PA and Lateral IMPRESSION: Stable borderline cardiomegaly with no acute or active cardiopulmonary disease. Electronically Signed: Ernesto Lim MD at 14:05 EST ,
[2023-05-02 13:09] LABS: Absolute Neutrophil Count 5.5 X10^3/uL (2.0-7.7); Basophil# 0.04 X10^3/uL; Basophil% 0.4 % (0-1); Eosinophil# 0.15 X10^3/uL; Eosinophils% 1.6 % (0-5); Hematocrit 45.7 % (40-54); Hemoglobin 14.4 g/dL (13.0-16.5); Lymphocyte % 26.6 % (19-41); Mean Corp Hgb Conc 31.5 g/dL (32-36); Mean Corpuscular Hgb 29.4 pg (27.0-32.0); Mean Corpuscular Volume 93.3 fL (80-94); Mean Platelet Vol. 9.6 fl (6.2-12.0); Monocyte# 1.11 X10^3/uL; Monocyte% 11.8 % (0-10); NRBC Flagged by Analyzer 0 % (0-5); Neutrophil # 5.54 X10^3/uL (2.7-7.7); Neutrophil % 59.1 % (47-70); Platelet Count 304 K/mm3 (150-450); RBC Distribution Width CV 13.8 % (11.6-14.6); White Blood Count 9.4 K/mm3 (4.4-11.0)
[2023-05-02 13:35] LABS: Anion Gap 4 (5-15); BUN 19 mg/dL (7-18); BUN/Creat Ratio 17.8 RATIO (10-20); Calcium,Total 8.9 mg/dL (8.5-10.1); Chloride 109 mmol/L (98-107); Creatinine, Serum 1.07 mg/dL (0.70-1.30); EST Glomerular Filtration Rate 74 mL/min (>60); Est Glom Filt Rate - Afr Amer 89 mL/min (>60); Glucose 102 mg/dL (74-106); Potassium 4.7 mmol/L (3.5-5.1); Sodium Level 140 mmol/L (136-145)
== END | disposition home or self-care (01) ==
LOC: RAD 12:36
PROVIDERS: PCP Family Medicine; Referring Provider Internal Medicine Cardiovascular Disease; Visit Provider Internal Medicine Cardiovascular Disease
DX: R94.39 Abnormal result of other cardiovascular function study (principal); E78.5 Hyperlipidemia, unspecified; I20.89 Other forms of angina pectoris; I10 Essential (primary) hypertension; G47.30 Sleep apnea, unspecified; R06.09 Other forms of dyspnea; R07.9 Chest pain, unspecified
CPT/HCPCS: 36415; 71046; 80048; 85025

== ENCOUNTER 2023-05-11 07:15 | Day surgery (SDC) | payer BC, SELFPAY ==
[2023-05-10 13:12] VITALS: BMI 52.3
--- OUTSIDE RECORDS SUMMARY | 2023-05-11 07:20 | XMS RPT_ITS | CCD ---
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 Name Role Phone Sanford Bronson MD Unavailable Brigette Lopez MD Primary Care Provider [phone] Oscar Dixon MD Unavailable Brigette Lopez MD Primary Care Provider Oscar Dixon MD Unavailable [phone] Brigette Lopez MD Primary Care Provider Brigette Lopez MD Primary Care Provider [phone] Oscar Dixon MD Unavailable [phone] Oscar Dixon MD Unavailable BRIGETTE LOPEZ Referring Unavailable BRIGETTE LOPEZ Primary Care Unavailable BRIGETTE LOPEZ Primary Care Unavailable BRIGETTE LOPEZ Referring Unavailable BRIGETTE LOPEZ Primary Care Unavailable XIAO ARIAS Referring Unavailab BRIGETTE Jesus Primary Care Unavailable BRIGETTE LOPEZ Primary Care Unavailable BRIGETTE LOPEZ Primary Care Unavailable XIAO ARIAS Referring Unavailab le BRIGETTE LOPEZ Primary Care Unavailable XIAO ARIAS Referring Unavailab le BRIGETTE LOPEZ Primary Care Unavailable XIAO ARIAS Attending Unavailab BRIGETTE Jesus Referring Unavailable BRIGETTE LOPEZ Primary Care Unavailable SERA GALLAGHER Attending Unavailable BRIGETTE LOPEZ Referring Unavailable BRIGETTE LOPEZ Attending Unavailable BRIGETTE LOPEZ Primary Care Unavailable BRIGETTE LOPEZ Attending Unavailable BRIGETTE LOPEZ Primary Care Unavailable XIAO ARIAS Referring Unavailab le BRIGETTE LOPEZ Primary Care Unavailable RINA KEITH Attending Unavailable BRIGETTE LOPEZ Primary Care Unavailable Medications Current Medications Medication Drug Class(es) Dates Sig (Normalized) Sig (Original) cefadroxil 500 mg oral capsule (1 source) Cephalosporin Antibacterial Start: 02-23-2023 End: 03-02-2023 take 1 capsule by mouth twice daily cefADROxil (DURICEF) 500 mg capsule Take 1 capsule by mouth twice daily for 7 days. 14 capsule 0 02/23/2023 03/02/2023 Active Completed/Discontinued Medications Medication Drug Class(es) Dates Sig (Normalized) Sig (Original) aspirin 81 mg chewable tablet (20 sources) Platelet Aggregation Inhibitor, Nonsteroidal Anti-inflammatory Drug take 1 tablet by mouth once daily aspirin 81 mg chewable tablet Take 81 mg by mouth once daily. 0 Active Problems Active Problems Problem Classification Problem Date Documented Da te Episodic/Chronic Aortic; peripheral; and visceral artery aneurysms (13 sources) Ascending aorta dilatation; Translations: [Thoracic aortic ectasia] Onset: 11-28-2022 11-28-2022 Chronic Cataract (20 sources) Bilateral cortical age-related cataract eyes; Translations: [Cortical age-related cataract, bilateral] Onset: 11-17-2019 05-06-2021 Chronic Chronic ulcer of skin (2 sources) Skin ulcer; Translations: [Non-pressure chronic ulcer of skin of other sites with unspecified severity] Onset: 02-23-2023 02-23-2023 Chronic Diabetes mellitus without complication (20 sources) Type 2 diabetes mellitus without complication; Translations: [Type 2 diabetes mellitus without complications] Onset: 11-26-2015 11-26-2015 Chronic Disorders of lipid metabolism (20 sources) Mixed hyperlipidemia; Translations: [Mixed hyperlipidemia] Onset: 07-28-2014 06-25-2015 Chronic Esophageal disorders (20 sources) Esophageal dysmotility; Translations: [Dyskinesia of esophagus] Onset: 11-05-2014 05-05-2016 Chronic Esophageal disorders (2 sources) Esophageal disorders; Translations: [Gastroesophageal reflux disease with esophagitis without hemorrhage] Onset: 11-28-2017 Essential hypertension (20 sources) Essential hypertension; Translations: [Essential (primary) hypertension] Onset: 02-26-2015 02-26-2015 Chronic Gastritis and duodenitis (20 sources) Chronic gastritis; Translations: [Unspecified chronic gastritis without bleeding] Onset: 11-28-2017 11-28-2017 Chronic Gastroduodenal ulcer (except hemorrhage) (20 sources) Gastric ulcer; Translations: [Gastric ulcer, unspecified as acute or chronic, without hemorrhage or perforation] Onset: 07-28-2014 05-30-2021 Chronic Gout and other crystal arthropathies (20 sources) Primary gout; Translations: [Idiopathic chronic gout, right ankle and foot, without tophus (tophi)] Onset: 07-16-2020 03-31-2021 Chronic Immunizations and screening for infectious disease (2 sources) Vaccination needed; Translations: [Encounter for immunization] Onset: 02-23-2023 02-23-2023 Episodic Osteoarthritis (20 sources) Unilateral primary osteoarthritis, right knee; Translations: [Osteoarthrosis, localized, primary, lower leg] Onset: 05-07-2016 08-23-2021 Chronic Other lower respiratory disease (2 sources) Dyspnea on exertion; Translations: [Other forms of dyspnea] Episodic Other male genital disorders (1 source) Disorder of prostate, unspecified; Translations: [Prostate disorder] Onset: 02-23-2023 Episodic Other nutritional; endocrine; and metabolic disorders (20 sources) Morbid obesity; Translations: [Morbid (severe) obesity due to excess calories] Onset: 06-25-2015 06-25-2015 Chronic Other nutritional; endocrine; and metabolic disorders (1 source) Morbid (severe) obesity due to excess calories; Translations: [Morbid obesity due to excess calories (HCC)] Onset: 06-25-2015 Chronic Residual codes; unclassified (20 sources) Obstructive sleep apnea syndrome; Translations: [Obstructive sleep apnea (adult) (pediatric)] Onset: 06-25-2015 10-23-2016 Chronic Spondylosis; intervertebral disc disorders; other back problems (2 sources) Acute low back pain; Translations: [Acute left-sided low back pain without sciatica] Episodic Unclassified (1 source) Acute left-sided low back pain without sciatica; Translations: [Acute left-sided low back pain without sciatica] Onset: 11-27-2022 Past or Other Problems Problem Classification Problem Date Documented Da te Episodic/Chronic Abdominal hernia (20 sources) Hiatal hernia; Translations: [Diaphragmatic hernia without obstruction or gangrene] Onset: 01-07-2014 07-28-2014 Episodic Abdominal pain (4 sources) Epigastric pain; Translations: [Epigastric pain] Onset: 10-13-2022 Episodic Biliary tract disease (20 sources) Cholelithiasis without obstruction; Translations: [Calculus of gallbladder without cholecystitis without obstruction] Onset: 07-03-2019 12-08-2019 Episodic Blindness and vision defects (20 sources) Bilateral hyperopia of eyes; Translations: [Hypermetropia, bilateral] Onset: 11-17-2019 12-08-2019 Episodic Cardiac dysrhythmias (11 sources) Palpitations; Translations: [Palpitations] Onset: 10-18-2018 10-18-2018 Episodic Gastrointestinal hemorrhage (1 source) Hemorrhage of anus and rectum; Translations: [Rectum bleeding] Onset: 10-13-2022 Episodic Other aftercare (20 sources) Patient encounter status; Translations: [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] Onset: 06-25-2015 03-21-2021 Episodic Other aftercare (2 sources) 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; Translations: [Medication management] Onset: 03-21-2021 Episodic Other and unspecified benign neoplasm (20 sources) Polyp of colon; Translations: [Polyp of colon] Onset: 03-31-2014 05-30-2021 Episodic Other and unspecified benign neoplasm (20 sources) Angiokeratoma of skin; Translations: [Other benign neoplasm of skin, unspecified] Onset: 10-28-2014 05-30-2021 Episodic Other and unspecified benign neoplasm (2 sources) Personal history of colonic polyps; Translations: [Hx of colonic polyps] Onset: 10-13-2022 Episodic Other connective tissue disease (20 sources) Plantar fasciitis; Translations: [Plantar fascial fibromatosis] Onset: 07-28-2014 05-05-2016 Episodic Other diseases of kidney and ureters (20 sources) Cyst of kidney; Translations: [Cyst of kidney, acquired] Onset: 07-28-2014 05-30-2021 Episodic Other gastrointestinal disorders (1 source) Other constipation; Translations: [Other constipation] Onset: 10-13-2022 Episodic Other liver diseases (20 sources) Increased creatine kinase level; Translations: [Abnormal levels of other serum enzymes] Onset: 07-28-2014 05-30-2021 Episodic Other lower respiratory disease (3 sources) Other forms of dyspnea; Translations: [OCAMPO (dyspnea on exertion)] Onset: 11-15-2022 Episodic Other male genital disorders (8 sources) Disorder of prostate; Translations: [Disorder of prostate, unspecified] Onset: 06-25-2015 02-23-2023 Episodic Other non-traumatic joint disorders (20 sources) Pain in right knee; Translations: [Pain in joint, lower leg] Onset: 04-19-2020 07-15-2020 Episodic Other screening for suspected conditions (not mental disorders or infectious disease) (1 source) Encounter for screening for malignant neoplasm of prostate; Translations: [Prostate cancer screening] Onset: 06-25-2015 Episodic Other skin disorders (20 sources) Callosity; Translations: [Corns and callosities] Onset: 05-05-2016 04-19-2018 Episodic Residual codes; unclassified (20 sources) Family history of aneurysm of artery; Translations: [Family history of ischemic heart disease and other diseases of the circulatory system] Onset: 06-27-2019 06-27-2019 Episodic Residual codes; unclassified (1 source) Family history of malignant neoplasm of digestive organs; Translations: [Family history of colon cancer] Onset: 10-13-2022 Episodic Unclassified (1 source) Problem Results Test Name Value Interpretation Reference Range Facil ity Vital Signs Date Time Vital Sign Value Performing Clinician Facility 02-23-2023 08:34-0400 Body weight 165.56 kg Brigette Lopez MD Work Phone: [facility] 02-23-2023 08:34-0400 Diastolic blood pressure 82 mm[Hg] Brigette Lopez MD Work Phone: [facility] 02-23-2023 08:34-0400 Heart rate 64 /min Brigette Lopez MD Work Phone: [facility] 02-23-2023 08:34-0400 Respiratory rate 16 /min Brigette Lopez MD Work Phone: [facility] 02-23-2023 08:34-0400 SaO2% (BldA) [Mass fraction] 98 % Brigette Lopez MD Work Phone: [facility] 02-23-2023 08:34-0400 Systolic blood pressure 118 mm[Hg] Brigette Lopez MD Work Phone: [facility] 11-27-2022 10:36-0400 Body temperature 97.9 [degF] Rinajonathan Keith PA-C Work Phone: [facility] 11-27-2022 10:36-0400 Body weight 170.1 kg Rina Keith PA-C Work Phone: [facility] 11-27-2022 10:36-0400 Diastolic blood pressure 80 mm[Hg] Rina Keith PA-C Work Phone: [facility] 11-27-2022 10:36-0400 Heart rate 60 /min Rina Keith PA-C Work Phone: [facility] 11-27-2022 10:36-0400 Respiratory rate 18 /min Rina Keith PA-C Work Phone: [facility] 11-27-2022 10:36-0400 Systolic blood pressure 128 mm[Hg] Rina Keith PA-C Work Phone: [facility] 11-15-2022 17:51-0400 Diastolic blood pressure 90 mm[Hg] Xiao Arias MD Work Phone: [facility] 11-15-2022 17:51-0400 Systolic blood pressure 122 mm[Hg] Xiao Arias MD Work Phone: [facility] 11-15-2022 16:47-0400 Body height 177.8 cm Xiao Arias MD Work Phone: [facility] 11-15-2022 16:47-0400 Body weight 169.19 kg Xiao Arias MD Work Phone: [facility] 11-15-2022 16:47-0400 Heart rate 96 /min Xiao Arias MD Work Phone: [facility] 11-15-2022 16:47-0400 Respiratory rate 16 /min Xiao Arias MD Work Phone: [facility] 11-15-2022 16:47-0400 SaO2% (BldA) [Mass fraction] 95 % Xiao Arias MD Work Phone: [facility] 08-18-2022 08:01-0400 Body height 177.8 cm Brigette Lopez MD Work Phone: [facility] 08-18-2022 08:01-0400 Body weight 167.83 kg Brigette Lopez MD Work Phone: [facility] 08-18-2022 08:01-0400 Diastolic blood pressure 86 mm[Hg] Brigette Lopez MD Work Phone: [facility] 08-18-2022 08:01-0400 Heart rate 60 /min Brigette Lopez MD Work Phone: [facility] 08-18-2022 08:01-0400 Respiratory rate 16 /min Brigette Lopez MD Work Phone: [facility] 08-18-2022 08:01-0400 Systolic blood pressure 130 mm[Hg] Brigette Lopez MD Work Phone: [facility] 02-10-2022 08:44-0400 Body weight 176 kg Brigette Lopez MD Work Phone: [facility] 02-10-2022 08:44-0400 Diastolic blood pressure 88 mm[Hg] Brigette Lopez MD Work Phone: [facility] 02-10-2022 08:44-0400 Heart rate 76 /min Brigette Lopez MD Work Phone: [facility] 02-10-2022 08:44-0400 Respiratory rate 16 /min Brigette Lopez MD Work Phone: [facility] 02-10-2022 08:44-0400 Systolic blood pressure 134 mm[Hg] Brigette Lopez MD Work Phone: [facility] NEGATED: Highlighted [id number] 14:22-0400 Body height 177.8 cm Ana Christiansen LPN [facility] Work Phone: NEGATED: Highlighted [id number] 14:040 Body height 178 cm [facility] Work Phone: NEGATED: Highlighted [id number] 14:040 Body mass index (BMI) [Ratio] 54.58 kg/m2 [facility] Work Phone: NEGATED: Highlighted [id number] 14:040 Body weight 171.91 kg [facility] Work Phone: NEGATED: Highlighted [id number] 14:040 Body weight 172 kg [facility] Work Phone: Encounters Encounter Date Encounter Type Care Provider Facility Start: 05-07-2023 Telephone encounter Brigette Lopez MD Work Phone: [facility] Procedures Date Procedure Procedure Detail Performing Clinician Start: 04-13-2023 Myocardial spect mul tiple studies Xiao Arias MD Work Phone: Start: 02-23-2023 INFLUENZA VACCINE, A GE 6 MO - 64 YR, QUADRIVALENT (AFLURIA, FLULAVAL, FLUZONE) Brigette Lopez MD Work Phone: Start: 11-06-2021 Adult depression screening assessment Brigette Lopez MD Work Phone: Start: 08-23-2021 End: 08-23-2021 BP scrn no perf at interval Sanford Bronson MD Work Phone: Start: 08-23-2021 End: 08-23-2021 Calc BMI abv up janis f/u Sanford sky MD Work Phone: Start: 08-23-2021 End: 08-23-2021 Current tobacco non-user cad cap copd pv dm Sanford Bronson MD Work Phone: Start: 08-23-2021 End: 08-23-2021 Docrev cur meds by margarita Bronson MD Work Phone: Start: 08-23-2021 End: 08-23-2021 Osteoarthritis symptoms&funcjal status asses Sanford Bronson MD Work Phone: Start: 08-23-2021 End: 08-23-2021 Pain doc pos and plan Sanford Bronson MD Work Phone: Start: 08-23-2021 End: 08-23-2021 Patient encounter procedure Sanford Bronson MD Work Phone: Start: 08-23-2021 End: 08-23-2021 Radiologic examination knee 3 views Sanford Bronson MD Work Phone: Start: 07-16-2020 Colonoscopy Brigette mccabe MD Work Phone: NEGATED: Highlighted rowStart: 08-23-2021 End: 08-23-2021 Documentation of current medications Ana Christiansen LPN Plan of Treatment Date Care Activity Detail Author Start: 12-28-2027 Urine microalbumin profile [facility] Start: 08-11-2027 PROSTATE CANCER SCRE ENING DISCUSSION PROSTATE CANCER SCREENING DISCUSSION [facility] Start: 03-25-2026 PROSTATE CANCER SCRE ENING DISCUSSION PROSTATE CANCER SCREENING DISCUSSION [facility] Start: 02-24-2024 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 Regional 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 Disease Visit Annual PCP Team Chronic Disease Visit [facility] Start: 02-24-2024 BP Controlled (<130/80) BP Controlle d (<130/80) [facility] Start: 02-18-2024 Hepatitis B surface antibody level LDL Cholesterol [facility] Start: 11-28-2023 ANNUAL PCP TEAM WOOD STAINER JESSICA DISEASE VISIT ANNUAL PCP TEAM CHRONIC DISEASE VISIT [facility] Start: 11-16-2023 ANNUAL PCP TEAM WOOD STAINER JESSICA DISEASE VISIT ANNUAL PCP TEAM CHRONIC DISEASE VISIT [facility] Start: 10-14-2023 FECAL OCCULT BLOOD FECAL OCCULT BLOO D [facility] Start: 08-19-2023 3 comp foot exam completed DIABETIC FOOT EXAM [facility] Start: 08-19-2023 ANNUAL PCP TEAM WOOD STAINER JESSICA DISEASE VISIT ANNUAL PCP TEAM CHRONIC DISEASE VISIT [facility] Start: 08-19-2023 COVID-19 VACCINE (4 - Booster for Pfizer series) COVID-19 VACCINE (4 - Booster for Pfizer series) [facility] Immunizations Immunization Date Immunization Notes Care Provider Jesus gilbert 02-23-2023 influenza, injectabl e, quadrivalent, contains preservative Brigette Lopez MD Work Phone: [facility] 03-31-2021 influenza, injectabl e, quadrivalent, contains preservative Brigette Lopez MD Work Phone: [facility] 09-11-2020 COVID-19 vaccine, ag e 12+ yr (PFIZER-BIONTECH - PURPLE TOP) Brigette Lopez MD Work Phone: [facility] 08-21-2020 COVID-19 vaccine, ag e 12+ yr (PFIZER-BIONTECH - PURPLE TOP) Brigette Lopez MD Work Phone: [facility] Work Phone: 04-14-2020 influenza, injectabl e, quadrivalent, contains preservative Brigette Lopez MD Work Phone: [facility] 04-25-2019 influenza, injectabl e, quadrivalent, contains preservative Brigette Lopez MD Work Phone: [facility] 04-19-2018 influenza, injectabl e, quadrivalent, contains preservative Brigette Lopez MD Work Phone: [facility] 12-27-2017 tetanus toxoid, redu samantha diphtheria toxoid, and acellular pertussis vaccine, adsorbed Brigette Lopez MD Work Phone: [facility] 04-27-2017 influenza, seasonal, injectable Brigette Lopez MD Work Phone: [facility] 10-23-2016 pneumococcal polysaccharide vaccine, 23 valent Brigette Lopez MD Work Phone: [facility] 10-09-2014 pneumococcal conjuga te vaccine, 13 valent Brigette Lopez MD Work Phone: [facility] Work Phone: Payers Date Payer Category Payer Unknown [employer] [id number] 2020-Present [phone] [address] [place] [address] PPO [id number] 2020 Unknown [employer] PPO [id number] 2020-Present [phone] [address] [place] [address] PPO [id number] 2020 Unknown [id number] Social History Date Type Detail Facility Start: 08-23-2021 End: 08-23-2021 Assertion Unknown if ever smoked [facility] Work Phone: Start: 04-03-2020 End: 02-10-2022 Tobacco smoking status NHIS Never smoked tobacco [facility] Start: 04-03-2020 End: 02-10-2022 Tobacco use and exposure Smokeless tobacco non-user [facility] Start: 06-10-2021 End: 02-23-2023 Alcohol intake Current drinker of alcohol (finding) [facility] Start: 04-19-2020 End: 08-11-2022 History SDOH Alcohol Frequency 3 [facility] Start: 04-19-2020 End: 08-11-2022 History SDOH Alcohol Binge 2 [facility] Start: 05-02-2013 History SDOH Alcohol Comment social [facility] Start: 12-02-2019 End: 08-11-2022 History SDOH Social Connections [facility] 1 [facility] Start: 12-02-2019 End: 08-11-2022 History SDOH Physical Activity DPW 0 [facility] Start: 12-02-2019 End: 08-11-2022 History SDOH Financial 5 [facility] Start: 12-02-2019 Education 12 [facility] Start: 1960 Sex Assigned At Male [facility] Start: 01-31-2022 End: 02-10-2022 Exposure to SARS-CoV-2 (event) Not sure [facility] Start: 03-10-2023 History SDOH Alcohol Binge 4 [facility] Start: 08-11-2022 End: 11-27-2022 History of Social function [facility] Start: 08-11-2022 End: 11-27-2022 Social connection and isolation panel [facility] Do you belong to any clubs or organizations such as sabianist groups, unions, fraternal or athletic groups, or school groups? Yes [facility] Are you now , , , , never or living with a partner? [facility] Frequency of Alcohol Consumption Not on file [facility] How many standard dr inks containing alcohol do you have on a typical day? 5 or 6 [facility] How often do you hav e 6 or more drinks on 1 occasion? Weekly [facility] Do you feel stress - tense, restless, nervous, or anxious, or unable to sleep at night because your mind is troubled all the time - these days [OSQ] Only a little [facility] (I/We) worried wheth er (my/our) food would run out before (I/we) got money to buy more. Never true [facility] In the past 12 month s, was there a time when you were not able to pay the mortgage or rent on time? No [facility] Start: 07-01-2019 Gender identity Identifies as male gender (finding) [facility] Start: 07-01-2019 Sexual orientation Heterosexual (finding) [facility] Medical Equipment Procedure Code Equipment Code Equipment Origin al Text Equipment Identifier Dates Test blood sugar (s) 1 times daily. Dx: Type 2 DM - Controlled E11.9 Insulin: No Start: 05-11-2017 Clinical Notes 08-23-2021 to 05-07-2023 Telephone Encounter - Altagracia Thomason Ma - 05/07/2023 11:36 AM Shannan Romero CNMT - 04/13/2023 7:15 AM ESTTelephone Encounter - Bertha Gomez RN - 04/12/2023 1:41 PM EST Note Date & Type Note Facility 05-07-2023 Miscellaneous Notes Images from the original note were not included. Received re-auth request from [facility] due to PA expiring this month. Tried to completed electronically but could not process. Completed PA through covermymeds [place] [id number] Notified that NO PA is needed rx authorized Altagracia Thomason Ma documented in this encounter [facility] 05-03-2023 Note HNO ID: [id number] Author: Nanette Vazquez LPN Service: ? Author Type: ? Type: Progress Notes Filed: 05/03/2023 2:07 PM Note Text: Scan on 05/02/2023 12:33 PM by Provider, External, PA-C: Consultation - Cardiology Scan on 05/02/2023 1:41 PM by Provider, External, PA-C: Hematology Scan on 05/02/2023 2:23 PM by Provider, External, PA-C: X-ray Scan on 05/02/2023 2:24 PM by Provider, External, PA-C: Chemistry [facility] 04-13-2023 Note HNO ID: [id number] Author: Shannan Ham CNMT Service: Radiology Author Type: Technologist Type: Progress Notes Filed: 04/13/2023 8:42 AM Note Text: RADIOLOGY SERVICE PROGRESS NOTE SERVICE DATE: 04/13/2023 SERVICE TIME: 8:41 AM PATIENT IDENTITY VERIFICATION COMPLETED USING TWO (2) STANDARD IDENTIFIERS: Name and Date of confirmed by patient verbally and Name and Date of confirmed by identification band FALL SCREENING: Has the patient had 2 falls in the last year or 1 fall with injury or currently using an Ambulatory Assistive Device (Walker, Cane, Wheelchair, Crutches, etc.)? Yes, Patient High Risk for Falls What interventions were put in place to prevent falls during this visit? Yellow Falls Risk Wristband Applied, Offered Assistance with Transfers/Clothing, and Increased Observations by Caregivers PATIENT GENDER DATA: .male ALLERGIES: Reviewed and unchanged MEDICATIONS REVIEWED: Not applicable PATIENT RELEVANT IMPLANT DATA REVIEWED: Not Applicable CREATININE: Creatinine Date Value Ref Range Status 11/30/2022 1.04 0.73 - 1.22 mg/dL Final 10/13/2022 1.06 0.73 - 1.22 mg/dL Final 08/10/2022 0.93 0.73 - 1.22 mg/dL Final Estimated Glomerular Filtration Rate Date Value Ref Range Status 11/30/2022 80 >=60 mL/min/1.73m? Final Comment: Estimated Glomerular Filtration Rate (eGFR) is calculated using the 2020 CKD-EPI creatinine equation. This equation utilizes serum creatinine, sex, and age as parameters. The creatinine assay has traceable calibration to isotope dilution-mass spectrometry. Refer to KDIGO guidelines for clinical interpretation. In patients with unstable renal function, e.g. those with acute kidney injury, the eGFR may not accurately reflect actual GFR. eGFR- Date Value Ref Range Status 06/10/2021 >60 Final P.O.C.T. RESULTS: N/A April 13, [address] PERFORMED: No IV SITE: Ambulatory: A peripheral IV was started in the Right antecubital site with a Angio cath: 22 gauge. POST EXAM PIV STATUS: Discontinued PROCEDURE TYPE: NM Stress: 16.7 mCi [id number] was administered IV for Rest Imaging at 7:24 by mc. 51.1 mCi [id number] was administered IV for Stress Imaging at 8:23 by mm. PATIENT DISCHARGED TO: Ambulatory patient, left NM department area. A Diagnostic radioactive procedure has taken place, with no further precautions necessary other than routine body substance precautions. More information regarding radiation safety can be found using this link: [email or web address] [email or web address] SIGNATURE: АННА Parson PATIENT NAME: Carl Johnson DATE: April 13, 2023 TIME: 8:41 AM PAGER/CONTACT #: [facility] 04-13-2023 History of Presen t illness Narrative RADIOLOGY SERVICE PROGRESS NOTE SERVICE DATE: 04/13/2023 SERVICE TIME: 8:41 AM PATIENT IDENTITY VERIFICATION COMPLETED USING TWO (2) STANDARD IDENTIFIERS: Name and Date of confirmed by patient verbally and Name and Date of confirmed by identification band FALL SCREENING: Has the patient had 2 falls in the last year or 1 fall with injury or currently using an Ambulatory Assistive Device (Walker, Cane, Wheelchair, Crutches, etc.)? Yes, Patient High Risk for Falls What interventions were put in place to prevent falls during this visit? [place] Risk Wristband Applied, Offered Assistance with Transfers/Clothing, and Increased Observations by Caregivers PATIENT GENDER DATA: .male ALLERGIES: Reviewed and unchanged MEDICATIONS REVIEWED: Not applicable PATIENT RELEVANT IMPLANT DATA REVIEWED: Not Applicable CREATININE: Creatinine Date Value Ref Range Status 11/30/2022 1.04 0.73 - 1.22 mg/dL Final 10/13/2022 1.06 0.73 - 1.22 mg/dL Final 08/10/2022 0.93 0.73 - 1.22 mg/dL Final Estimated Glomerular Filtration Rate Date Value Ref Range Status 11/30/2022 80 >=60 mL/min/1.73m Final Comment: Estimated Glomerular Filtration Rate (eGFR) is calculated using the 2020 CKD-EPI creatinine equation. This equation utilizes serum creatinine, sex, and age as parameters. The creatinine assay has traceable calibration to isotope dilution-mass spectrometry. Refer to KDIGO guidelines for clinical interpretation. In patients with unstable renal function, e.g. those with acute kidney injury, the eGFR may not accurately reflect actual GFR. eGFR- Date Value Ref Range Status 06/10/2021 >60 Final P.O.C.T. RESULTS: N/A April 13, [address] PERFORMED: No IV SITE: Ambulatory: A peripheral IV was started in the Right antecubital site with a Angio cath: 22 gauge. POST EXAM PIV STATUS: Discontinued PROCEDURE TYPE: NM Stress: 16.7 mCi [id number] was administered IV for Rest Imaging at 7:24 by . 51.1 mCi [id number] was administered IV for Stress Imaging at 8:23 by mm. PATIENT DISCHARGED TO: Ambulatory patient, left NM department area. A Diagnostic radioactive procedure has taken place, with no further precautions necessary other than routine body substance precautions. More information regarding radiation safety can be found using this link: [email or web address] uclear%[email or web address] df SIGNATURE: АННА Parson PATIENT NAME: Carl Johnson DATE: April 13, 2023 TIME: 8:41 AM PAGER/CONTACT #: documented in this encounter [facility] 04-12-2023 Miscellaneous Notes Spoke with patient regarding reminder for stress test tomorrow and given instructions. documented in this encounter [facility] 03-14-2023 Miscellaneous Notes The following approved medication requests have been transmitted electronically. Requested Prescriptions Signed Prescriptions Disp Refills pioglitazone (ACTOS) 15 mg tablet 90 tablet 1 Sig: Take 1 tablet by mouth once daily. Authorizing Provider: BRIGETTE LOPEZ metoprolol tartrate, short acting, (LOPRESSOR) 50 mg tablet 180 tablet 1 Sig: TABLET ONE TABLET BY MOUTH TWICE DAILY Authorizing Provider: BRIGETTE LOPEZ MD Patient phones requesting refills as follows: Requested Prescriptions Pending Prescriptions Disp Refills pioglitazone (ACTOS) 15 mg tablet 90 tablet 1 Sig: Take 1 tablet by mouth once daily. metoprolol tartrate, short acting, (LOPRESSOR) 50 mg tablet 180 tablet 1 Sig: TABLET ONE TABLET BY MOUTH TWICE DAILY [facility]-02/23/23 Labs-02/17/23 NOV-08/20/23 Please review and advise. Debra Mckeon LPN documented in this encounter [facility] 03-14-2023 Miscellaneous Notes The following approved medication requests have been transmitted electronically. Requested Prescriptions Signed Prescriptions Disp Refills febuxostat (ULORIC) 40 mg tab 90 tablet 1 Sig: Take 1 tablet by mouth once daily. For gout. Authorizing Provider: BRIGETTE LOPEZ cyclobenzaprine (FLEXERIL) 10 mg tablet 120 tablet 1 Sig: Take 1 tablet by mouth two times a day as needed for muscle spasm. Authorizing Provider: BRIGETTE LOPEZ MD Patient phones requesting refills as follows: Requested Prescriptions Pending Prescriptions Disp Refills febuxostat (ULORIC) 40 mg tab 90 tablet 1 Sig: Take 1 tablet by mouth once daily. For gout. cyclobenzaprine (FLEXERIL) 10 mg tablet 120 tablet 1 Sig: Take 1 tablet by mouth two times a day as needed for muscle spasm. [facility]-02/23/23 Labs-02/17/23 NOV-08/20/23 Please review and advise. Debra Mckeon LPN documented in this encounter [facility] 02-23-2023 Note HNO ID: [id number] Author: Brigette Lopez MD Service: ? Author Type: Physician Type: Progress Notes Filed: 02/24/2023 12:20 PM Note Text: Chief Complaint Patient presents with: 6 Month Exam HPI Carl Johnson is a 62 year old male who presents here today for Above Complaints.. Patient with Hx of LEROY, DM 2, HTN, GERD, hyperlipidemia, morbid obesity bilateral arthritic knee pain as well as those reviewed and addressed below and in ROS. Patient doing well. Still with knee pain seeing ortho. Has a sore in the left lower abdomen that has been bleeding and painful.. no fevers or chills. Has not seen any pus. Past medical history, appointments, medications, allergies reviewed. Previous Medical History PAST MEDICAL HISTORY Diagnosis Date Angiokeratoma 10/28/2014 Excised right lower leg 10/2014 Arthritis of both knees 05/07/2016 Right worse than left per x-rays 05/2016 Ascending aorta dilatation (HCC) 11/28/2022 US 09/2022 4.0 cm mid portion, repeat US in a year. Calculus of gallbladder without cholecystitis without obstruction 07/03/2019 Chronic gastritis 11/28/2017 Chronic pain of both knees 04/19/2020 Colon polyps 03/31/2014 Dr. Dixon: colonoscopy 03/23/2014. 2 adenomas and 1 hyperplastic. Needs repeat in 3 yrs. [place] or callus 05/05/2016 Cortical age-related cataract, bilateral 11/17/2019 Diabetic eye exam (HCC) 12/10/2013 Last one done: 09/28/2018 No retinopathy. Elevated CPK 07/28/2014 W/U in past was neg. Esophageal spasm 11/05/2014 Essential hypertension 02/26/2015 Family history of brain aneurysm 06/27/2019 Gastric ulcer 07/28/201404/2008 Gastroesophageal reflux disease with esophagitis 02/26/2015 Hiatal hernia 01/07/2014 Hyperopia of both eyes with astigmatism and presbyopia 11/17/2019 Idiopathic chronic gout of right ankle 07/16/2020 Mixed hyperlipidemia 07/28/2014 Morbid obesity due to excess calories ([facility]) 06/25/2015 Obstructive sleep apnea syndrome 06/25/2015 On CPAP Plantar fasciitis 07/28/2014 Renal cyst 07/28/2014 Lt and Rt simple cyst Type 2 diabetes mellitus without complication, without long-term current use of insulin ([facility]) 11/26/2015 Previous Surgical History PAST SURGICAL HISTORY Procedure Laterality Date *STRESS TEST PC 01/12/2014 Normal COLONOSCOPY 03/23/[address] Dixon: tubular adenoma x2 and a hyperplastic polyp. COLONOSCOPY 07/02/2017 Dr. Dixon, positive for polyps, repeat 3 yrs. HEART CATHETERIZATION 10/[address] Lee WNL TONSILLECTOMY HX Family History FAMILY HISTORY Problem Relation Age of Onset Colon Cancer Father 70's Stroke Father other (AAA) Father Coronary Artery Disease Brother 50's Cancer Brother pancratic Hypertension Mother Cancer Mother lung other (hemorrhagic CVA) Mother Due to anyuresim Coronary Artery Disease Brother 48 Coronary Artery Disease Paternal Grandfather 43 Coronary Artery Disease Paternal Uncle 76 No Ocular Disease No Family History Patient Allergies ALLERGIES No Known Allergies Current Medications Current Outpatient Medications on File Prior to Visit Medication Sig CPAP/BIPAP/OTHER Type .CPAPSettings into a note to see current settings/supplies/DME information. febuxostat (ULORIC) 40 mg tab Take 1 tablet by mouth once daily. For gout. cyclobenzaprine (FLEXERIL) 10 mg tablet Take 1 tablet by mouth twice daily as needed for muscle spasm. nitroglycerin sublingual (NITROQUICK) 0.4 mg SL tablet Dissolve 1 tablet under the tongue every 5 minutes as needed for chest pain. lisinopril (ZESTRIL) 40 mg tablet Take 1 tablet by mouth once daily. pioglitazone (ACTOS) 15 mg tablet Take 1 tablet by mouth once daily. diclofenac, EC, (VOLTAREN) 75 mg EC tablet Take 1 tablet by mouth twice daily. For pain/inflammation. Take with food. metoprolol tartrate, short acting, (LOPRESSOR) 50 mg tablet TABLET ONE TABLET BY MOUTH TWICE DAILY RABEprazole (ACIPHEX) 20 mg tablet Take 1 tablet by mouth twice daily. Blood-Glucose Meter monitoring kit Glucose Meter of Choice - Kit - Dx: Type 2 DM - Controlled E11.9 No on insuline blood sugar diagnostic (BLOOD GLUCOSE TEST) test strip Test blood sugar(s) 1 times daily. Dx: Type 2 DM - Controlled E11.9 Insulin: No cinnamon bark (CINNAMON ORAL) Take by mouth. colchicine 0.6 mg tablet Take one tab by mouth 3 times a day till pain stops or script finished. dicyclomine (BENTYL) 10 mg capsule 1-2 tabs every 8 hrs as needed. triamcinolone (KENALOG IN ORABASE) 0.1 % paste Apply to affected areas 2-3 times a day. Lancets lancets Test blood sugar(s) 1 times daily. Dx: Type 2 DM - Controlled E11.9 Insulin: No COMPOUNDED PRESCRIPTION Auto-PAP at 7-15 cmH2O with humidification. With appropriate supplies and a medium Respironics Rhoda View full face mask. Dx: G47.33 omega-3 fatty acids 1,000 mg cap Take 2 capsules by mouth twice daily. Take 1 capsule by mouth twice daily (more content not included)... [facility] 02-23-2023 Instructions Brigette Lopez MD - 02/23/2023 9:13 AM EDT use Pinx or butt paste on the skin sore 3-4 times a day till healed over. . Please get labs and urine test done on or after 08/09/2022 prior to your next visit. documented in this encounter [facility] 02-23-2023 History of Presen t illness Narrative Chief Complaint Patient presents with: 6 Month Exam HPI Carl Johnson is a 62 year old male who presents here today for Above Complaints.. Patient with Hx of LEROY, DM 2, HTN, GERD, hyperlipidemia, morbid obesity bilateral arthritic knee pain as well as those reviewed and addressed below and in ROS. Patient doing well. Still with knee pain seeing ortho. Has a sore in the left lower abdomen that has been bleeding and painful.. no fevers or chills. Has not seen any pus. Past medical history, appointments, medications, allergies reviewed. Previous Medical History PAST MEDICAL HISTORY Diagnosis Date Angiokeratoma 10/28/2014 Excised right lower leg 10/2014 Arthritis of both knees 05/07/2016 Right worse than left per x-rays 05/2016 Ascending aorta dilatation (HCC) 11/28/2022 US 09/2022 4.0 cm mid portion, repeat US in a year. Calculus of gallbladder without cholecystitis without obstruction 07/03/2019 Chronic gastritis 11/28/2017 Chronic pain of both knees 04/19/2020 Colon polyps 03/31/2014 Dr. Dixon: colonoscopy 03/23/2014. 2 adenomas and 1 hyperplastic. Needs repeat in 3 yrs. [place] or callus 05/05/2016 Cortical age-related cataract, bilateral 11/17/2019 Diabetic eye exam (HCC) 12/10/2013 Last one done: 09/28/2018 No retinopathy. Elevated CPK 07/28/2014 W/U in past was neg. Esophageal spasm 11/05/2014 Essential hypertension 02/26/2015 Family history of brain aneurysm 06/27/2019 Gastric ulcer 07/28/201404/2008 Gastroesophageal reflux disease with esophagitis 02/26/2015 Hiatal hernia 01/07/2014 Hyperopia of both eyes with astigmatism and presbyopia 11/17/2019 Idiopathic chronic gout of right ankle 07/16/2020 Mixed hyperlipidemia 07/28/2014 Morbid obesity due to excess calories ([facility]) 06/25/2015 Obstructive sleep apnea syndrome 06/25/2015 On CPAP Plantar fasciitis 07/28/2014 Renal cyst 07/28/2014 Lt and Rt simple cyst Type 2 diabetes mellitus without complication, without long-term current use of insulin ([facility]) 11/26/2015 Previous Surgical History PAST SURGICAL HISTORY Procedure Laterality Date *STRESS TEST PC 01/12/2014 Normal COLONOSCOPY 03/23/[address] Dixon: tubular adenoma x2 and a hyperplastic polyp. COLONOSCOPY 07/02/2017 Dr. Dixon, positive for polyps, repeat 3 yrs. HEART CATHETERIZATION 10/[address] Lee WNL TONSILLECTOMY HX Family History FAMILY HISTORY Problem Relation Age of Onset Colon Cancer Father 70's Stroke Father other (AAA) Father Coronary Artery Disease Brother 50's Cancer Brother pancratic Hypertension Mother Cancer Mother lung other (hemorrhagic CVA) Mother Due to anyuresim Coronary Artery Disease Brother 48 Coronary Artery Disease Paternal Grandfather 43 Coronary Artery Disease Paternal Uncle 76 No Ocular Disease No Family History Patient Allergies ALLERGIES No Known Allergies Current Medications Current Outpatient Medications on File Prior to Visit Medication Sig CPAP/BIPAP/OTHER Type .CPAPSettings into a note to see current settings/supplies/DME information. febuxostat (ULORIC) 40 mg tab Take 1 tablet by mouth once daily. For gout. cyclobenzaprine (FLEXERIL) 10 mg tablet Take 1 tablet by mouth twice daily as needed for muscle spasm. nitroglycerin sublingual (NITROQUICK) 0.4 mg SL tablet Dissolve 1 tablet under the tongue every 5 minutes as needed for chest pain. lisinopril (ZESTRIL) 40 mg tablet Take 1 tablet by mouth once daily. pioglitazone (ACTOS) 15 mg tablet Take 1 tablet by mouth once daily. diclofenac, EC, (VOLTAREN) 75 mg EC tablet Take 1 tablet by mouth twice daily. For pain/inflammation. Take with food. metoprolol tartrate, short acting, (LOPRESSOR) 50 mg tablet TABLET ONE TABLET BY MOUTH TWICE DAILY RABEprazole (ACIPHEX) 20 mg tablet Take 1 tablet by mouth twice daily. Blood-Glucose Meter monitoring kit Glucose Meter of Choice - Kit - Dx: Type 2 DM - Controlled E11.9 No on insuline blood sugar diagnostic (BLOOD GLUCOSE TEST) test strip Test blood sugar(s) 1 times daily. Dx: Type 2 DM - Controlled E11.9 Insulin: No cinnamon bark (CINNAMON ORAL) Take by mouth. colchicine 0.6 mg tablet Take one tab by mouth 3 times a day till pain stops or script finished. dicyclomine (BENTYL) 10 mg capsule 1-2 tabs every 8 hrs as needed. triamcinolone (KENALOG IN ORABASE) 0.1 % paste Apply to affected areas 2-3 times a day. Lancets lancets Test blood sugar(s) 1 times daily. Dx: Type 2 DM - Controlled E11.9 Insulin: No COMPOUNDED PRESCRIPTION Auto-PAP at 7-15 cmH2O with humidification. With appropriate supplies and a medium Respironics Rhoda View full face mask. Dx: G47.33 omega-3 fatty acids 1,000 mg cap Take 2 capsules by mouth twice daily. Take 1 capsule by mouth twice daily aspirin 81 mg chewable tablet Take 81 mg by mouth once daily. Current Facility-Administered Medications on File Prior to Visit Medication perflutren lipid microspheres 1.3 mL in NaCl (PF) 0.9% 10 mL injection (DEFINITY) sodium chloride 0.9 % (flush) 10 mL (BD POSIFLUSH) Social History Social History Tobacco Use Smoking status: Never Smokeless tobacco: Never Vaping Use Vaping Use: Never used Substance Use Topics Alcohol use: Yes Comment: social Drug use: No Review of Symptoms REVIEW OF SYSTEMS GENERAL: No unintentional weight loss, malaise or fevers NECK: Negative for lumps, goiter, pain and significant neck swelling RESPIRATORY: Negative for cough, hemoptysis, wheezing, COPD, dyspnea or shortness of breath CARDIOVASCULAR: Negative for chest pain, leg swelling, hypertension, CHF or palpitations GI: No nausea, vomiting, or diarrhea and No heartburn or reflux symptoms : No history of dysuria, frequency or blood HEMATOLOGY/LYMPHOLOGY: Negative for prolonged bleeding, bruising easily or swollen nodes ENDOCRINE: Negative for symptoms of of low BS's NEURO: No history of headaches, syncope, paralysis, seizures or tremors Skin: see HPI EXAM: BP 118/82 Pulse 64 Resp 16 Wt (!) 165.6 kg (365 lb) SpO2 98% BMI 52.37 kg/m Last 5 Encounter Wt Readings: Date: Wt: 02/23/2023 165.6 kg (365 lb) 11/27/2022 170.1 kg (375 lb) 11/15/2022 169.2 kg (373 lb) 08/18/2022 167.8 kg (370 lb) 02/10/2022 176 kg (388 lb) General Appearance: Well appearing, alert, in no acute distress, well-hydrated, well nourished. and Morbidly obese. Eyes: Anicteric sclera. Pupils are equally round and reactive to light. Extraocular movements are intact. . Neck: Supple, no adenopathy; thyroid symmetric, normal size, no bruits. Lungs: Lungs clear to auscultation. No wheezing, rhonchi, rales.. Heart: RRR without murmur, gallop, or rubs. No ectopy. Abdomen: Normal abdominal exam, Abdomen soft, non-tender. Bowel sounds normal. No masses, organomegaly. Extremities: No deformities, edema, skin discoloration, Good capillary refill. . Musculoskeletal: Spine range of motion normal. Muscular strength intact, No joint swelling, deformity, or tenderness. Peripheral Pulses: Normal. Neurologic: Gait normal. Reflexes normal and symmetric. Sensation to light touch and crainal nerves 2-12 intact. Skin: has a ulcer in the left lower abdomen mild erythema with no pus.. Health Maintenance List Hepatitis B Vaccine(1 of 3 - Risk 3-dose series) Never done BP Controlled (<130/80) due on 02/10/2023 Influenza Vaccine(1) due on 02/02/2023 Shingrix Vaccine(1 of 2) due on 08/19/2023 Covid-19 Vaccine(4 - Pfizer series) due on 08/19/2023 Colorectal Cancer Screening due on 07/16/2023 Pneumococcal Vaccine(3 - PPSV23 or PCV20) due on 08/05/2023 Urine Albumin:Creatinine Ratio due on 08/11/2023 HbA1C due on 08/18/2023 Dilated Retinal Exam due on 08/19/2023 Diabetic Foot Exam due on 08/19/2023 Annual PCP Team Chronic Disease Visit due on 11/28/2023 LDL Cholesterol due on 02/18/2024 Prostate Cancer Screening Discussion due on 08/11/2027 DTaP,Tdap,Td Vaccine(2 - Td or Tdap) due on 12/28/2027 Depression Assessment Completed Hepatitis C Screening Completed HIV Screening Discontinued Data reviewed Component Latest Ref Rng & Units 08/10/2022 11/30/2022 02/17/2023 Total Cholesterol, Nonfasting <200 mg/dL 197 163 Triglycerides, Nonfasting <150 mg/dL 144 144 HDL Cholesterol, Nonfasting >39 mg/dL 54 43 LDL Cholesterol, Nonfasting <100 mg/dL 114 (H) 91 Non HDL Cholesterol, Nonfasting <130 mg/dL 143 (H) 120 VLDL Cholesterol, Nonfasting <30 mg/dL 29 29 Total Chol/HDL Ratio, Nonfasting <5.10 mg/dL 3.65 3.79 LDL/HDL Ratio, Nonfasting <2.54 mg/dL 2.11 2.12 Hemoglobin A1C 4.3 - 5.6 % 5.7 (H) 5.7 (H) Estimated Average Glucose mg/dL 117 117 TSH 0.270 - 4.200 mIU/L 2.030 A/P ASSESSMENT/PLAN: 1. Type 2 diabetes mellitus without retinopathy (HCC) - ICD9: 250.00, ICD10: E11.9 (primary diagnosis) - Controlled - Continue current medications 2. Type 2 diabetes mellitus without complication, without long-term current use of insulin (HCC) - ICD9: 250.00, ICD10: E11.9 - Controlled - Continue current medications - Blood glucose monitoring on a once a day prn schedule - Counseled on healthy diet and regular exercise - Discussed need for and benefit of weight loss. BMI 52.37 kg/(m^2) 3. Diabetic eye exam (HCC) - ICD9: V72.0, 250.00, ICD10: Z01.00, E11.9 - up to date 4. Essential hypertension - ICD9: 401.9, ICD10: I10 - Controlled - Continue current medications - Recommend home blood pressure monitoring, to bring results to next visit - Encouraged sodium restriction, DASH or Mediterranean diet - Recommend regular aerobic exercise 5. Mixed hyperlipidemia - ICD9: 272.2, ICD10: E78.2 - Controlled - Continue current medications - Counseled on healthy diet and regular exercise 6. Gastroesophageal reflux disease with esophagitis without hemorrhage - ICD9: 530.81, 530.10, ICD10: K21.00 - Continue treatment with Acifex 20 mg BID 7. Ascending aorta dilatation (HCC) - ICD9: 447.71, ICD10: I77.810 - will monitor 8. 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 - ICD9: 274.02, ICD10: M1A.0710 - cont meds and tart reyes 9. Morbid obesity due to excess calories (HCC) - ICD9: 278.01, ICD10: E66.01 Weight decreasing - Behavioral intervention 10. Calculus of gallbladder without cholecystitis without obstruction - ICD9: 574.20, ICD10: K80.20 - asymptomatic 11. Need for vaccination - ICD9: V05.9, ICD10: Z23 - INFLUENZA VACCINE, AGE 6 MO - 64 YR, QUADRIVALENT (AFLURIA, FLULAVAL, FLUZONE): given 12. Skin ulcer, unspecified ulcer stage (HCC) - ICD9: 707.9, ICD10: L98.499: New - will place on Duricef 500 mg twice a day for a week and advised on use of Pinx or butt paste. If not improving will need to f/u and possibly consider wound consult. Requested Prescriptions Signed Prescriptions Disp Refills diclofenac (VOLTAREN ARTHRITIS PAIN) 1 % topical gel 450 g 5 Sig: Apply 4 g to affected area four times daily. Max of 16 G per joint and 32 G total a day. cefADROxil (DURICEF) 500 mg capsule 14 capsule 0 Sig: Take 1 capsule by mouth twice daily for 7 days. F/u 6 months WAE check CMP, Lipid, UA, urine micro albumin, A1c, CBC, B12, Mg, Uric acid and PSA prior Brigette Lopez MD documented in this encounter [facility] 01-19-2023 Miscellaneous Notes Dasjackelyn aware advised generated the [facility] Please make JUVENC[facility] aware of this. We just faxed a new order to them this week. Lakshmi Prior authorization reporting the continuous positive airway pressure device has been approved from 01-18-23 to 04-17-23. Approval # [id number] documented in this encounter [facility] 01-16-2023 Miscellaneous Notes Faxed to [employer] Orders ready to be faxed to [employer]. I need to know the name of [employer] company to print script documented in this encounter [facility] 12-15-2022 Miscellaneous Notes Phoned patient and reviewed message with him. Patient voiced understanding. ----- Message from Xiao Arias MD sent at 12/15/2022 10:49 AM EDT ----- Preliminary result for Holter monitor shows normal sinus rhythm with rare benign extra beats. Overall, normal study. documented in this encounter [facility] 12-01-2022 Miscellaneous Notes Patient calls and notified of results and providers instructions. Patient verbalizes understanding. Emelina Rajan RN Message left for patient to return call to review results and recommendations. ----- Message from Xiao Arias MD sent at 12/01/2022 8:28 AM EDT ----- Normal labs aside from minimally elevated BNP. When significantly elevated, this can be a sign of heart failure. Recommend he continue cardiac workup as ordered. documented in this encounter [facility] 11-27-2022 Miscellaneous Notes Phoned patient and given provider's message below with verbalized understanding. Patient agreeable. It means it was on the borderline for being enlarged. I would not refer him to a specialist based on these readings. Would have him follow up with PCP to discuss repeat imaging. Phoned patient and reviewed results with him. Patient requesting explanation on what borderline mid ascending aorta means? Advised him would return call after provider responds. ----- Message from Xiao Arias MD sent at 11/27/2022 2:10 PM EDT ----- Echo technically difficult. Patient has mild enlargement of left lower part of his heart with normal pumping function. No valve abnormalities. With EF in normal range, heart failure is not a cause of his shortness of breath. Still awaiting NM stress testing to rule out artery blockage/ischemia as possible cause. Noted borderline dilated mid ascending aorta on this echo. Will forward to PCP as FYI to follow up with repeat imaging documented in this encounter [facility] 11-27-2022 Miscellaneous Notes Patient returned call and given message below. Patient states he thought he had the labs done, but he was wrong. States he will go to lab somtime this week. Pt advised Rina at ov this am that he did the labs that were ordered 11/15 on Sat 11/18 at [place] d/t lab was closed after his ov on 11/15. Called lab at [facility] and spoke with Jodi. She advises that pt did not do labs there. Pt is not on their Sat schedule and does not even show that he was there and had been turned away for some reason. Please apologize to pt but he will still need to have labs completed. Misha Cruz LPN documented in this encounter [facility] 11-27-2022 Note HNO ID: [id number] Author: Rina Keith PA-C Service: ? Author Type: Physician Steam Oven Operator Type: Progress Notes Filed: 11/27/2022 11:26 AM Note Text: Chief Complaint Patient presents with: Recheck: Blood pressure and back pain HPI Carl Johnson is a 62 year old male who presents here today for BP recheck. Patient was seen on 11/15 for intermittent shortness of breath and fatigue. Patient's bp that day was mildly elevated. He does have cardiac work up scheduled. He is feeling a little better. Still having fatigue. Past medical history, appointments, medications, allergies reviewed. Previous Medical History PAST MEDICAL HISTORY Diagnosis Date Angiokeratoma 10/28/2014 Excised right lower leg 10/2014 Arthritis of both knees 05/07/2016 Right worse than left per x-rays 05/2016 Calculus of gallbladder without cholecystitis without obstruction 07/03/2019 Chronic gastritis 11/28/2017 Chronic pain of both knees 04/19/2020 Colon polyps 03/31/2014 Dr. Dixon: colonoscopy 03/23/2014. 2 adenomas and 1 hyperplastic. Needs repeat in 3 yrs. [place] or callus 05/05/2016 Cortical age-related cataract, bilateral 11/17/2019 Diabetic eye exam (HCC) 12/10/2013 Last one done: 09/28/2018 No retinopathy. Elevated CPK 07/28/2014 W/U in past was neg. Esophageal spasm 11/05/2014 Essential hypertension 02/26/2015 Family history of brain aneurysm 06/27/2019 Gastric ulcer 07/28/201404/2008 Gastroesophageal reflux disease with esophagitis 02/26/2015 Hiatal hernia 01/07/2014 Hyperopia of both eyes with astigmatism and presbyopia 11/17/2019 Idiopathic chronic gout of right ankle 07/16/2020 Mixed hyperlipidemia 07/28/2014 Morbid obesity due to excess calories (HCC) 06/25/2015 Obstructive sleep apnea syndrome 06/25/2015 On CPAP Plantar fasciitis 07/28/2014 Renal cyst 07/28/2014 Lt and Rt simple cyst Type 2 diabetes mellitus without complication, without long-term current use of insulin (HCC) 11/26/2015 Previous Surgical History PAST SURGICAL HISTORY Procedure Laterality Date *STRESS TEST PC 01/12/2014 Normal COLONOSCOPY 03/23/[address] Dixon: tubular adenoma x2 and a hyperplastic polyp. COLONOSCOPY 07/02/2017 Dr. Dixon, positive for polyps, repeat 3 yrs. HEART CATHETERIZATION 10/[address] Lee WNL TONSILLECTOMY HX Family History FAMILY HISTORY Problem Relation Age of Onset Colon Cancer Father 70's Stroke Father other (AAA) Father Coronary Artery Disease Brother 50's Cancer Brother pancratic Hypertension Mother Cancer Mother lung other (hemorrhagic CVA) Mother Due to anyuresim Coronary Artery Disease Brother 48 Coronary Artery Disease Paternal Grandfather 43 Coronary Artery Disease Paternal Uncle 76 No Ocular Disease No Family History Patient Allergies ALLERGIES No Known Allergies Current Medications Current Outpatient Medications on File Prior to Visit Medication Sig nitroglycerin sublingual (NITROQUICK) 0.4 mg SL tablet Dissolve 1 tablet under the tongue every 5 minutes as needed for chest pain. lisinopril (ZESTRIL) 40 mg tablet Take 1 tablet by mouth once daily. pioglitazone (ACTOS) 15 mg tablet Take 1 tablet by mouth once daily. diclofenac, EC, (VOLTAREN) 75 mg EC tablet Take 1 tablet by mouth twice daily. For pain/inflammation. Take with food. metoprolol tartrate, short acting, (LOPRESSOR) 50 mg tablet TABLET ONE TABLET BY MOUTH TWICE DAILY RABEprazole (ACIPHEX) 20 mg tablet Take 1 tablet by mouth twice daily. Blood-Glucose Meter monitoring kit Glucose Meter of Choice - Kit - Dx: Type 2 DM - Controlled E11.9 No on insuline blood sugar diagnostic (BLOOD GLUCOSE TEST) test strip Test blood sugar(s) 1 times daily. Dx: Type 2 DM - Controlled E11.9 Insulin: No colchicine 0.6 mg tablet Take one tab by mouth 3 times a day till pain stops or script finished. dicyclomine (BENTYL) 10 mg capsule 1-2 tabs every 8 hrs as needed. triamcinolone (KENALOG IN ORABASE) 0.1 % paste Apply to affected areas 2-3 times a day. Lancets lancets Test blood sugar(s) 1 times daily. Dx: Type 2 DM - Controlled E11.9 Insulin: No COMPOUNDED PRESCRIPTION Auto-PAP at 7-15 cmH2O with humidification. With appropriate supplies and a medium Respironics Rhoda View full face mask. Dx: G47.33 omega-3 fatty acids 1,000 mg cap Take 2 capsules by mouth twice daily. Take 1 capsule by mouth twice daily aspirin 81 mg chewable tablet Take 81 mg by mouth once daily. cinnamon bark (CINNAMON ORAL) Take by mouth. (Patient not taking: Reported on 11/27/2022) Current Facility-Administered Medications on File Prior to Visit Medication perflutren lipid microspheres 1.3 mL in NaCl (PF) 0.9% 10 mL injection (DEFINITY) sodium chloride 0.9 % (flush) 10 mL (BD POSIFLUSH) Social History Social History Tobacco Use Smoking status: Never Smokeless tobacco: Never Vaping Use Vaping Use: Never used Substance Use T (more content not included)... [facility] 11-27-2022 History of Presen t illness Narrative Chief Complaint Patient presents with: Recheck: Blood pressure and back pain HPI Carl Johnson is a 62 year old male who presents here today for BP recheck. Patient was seen on 11/15 for intermittent shortness of breath and fatigue. Patient's bp that day was mildly elevated. He does have cardiac work up scheduled. He is feeling a little better. Still having fatigue. Past medical history, appointments, medications, allergies reviewed. Previous Medical History PAST MEDICAL HISTORY Diagnosis Date Angiokeratoma 10/28/2014 Excised right lower leg 10/2014 Arthritis of both knees 05/07/2016 Right worse than left per x-rays 05/2016 Calculus of gallbladder without cholecystitis without obstruction 07/03/2019 Chronic gastritis 11/28/2017 Chronic pain of both knees 04/19/2020 Colon polyps 03/31/2014 Dr. Dixon: colonoscopy 03/23/2014. 2 adenomas and 1 hyperplastic. Needs repeat in 3 yrs. [place] or callus 05/05/2016 Cortical age-related cataract, bilateral 11/17/2019 Diabetic eye exam (HCC) 12/10/2013 Last one done: 09/28/2018 No retinopathy. Elevated CPK 07/28/2014 W/U in past was neg. Esophageal spasm 11/05/2014 Essential hypertension 02/26/2015 Family history of brain aneurysm 06/27/2019 Gastric ulcer 07/28/201404/2008 Gastroesophageal reflux disease with esophagitis 02/26/2015 Hiatal hernia 01/07/2014 Hyperopia of both eyes with astigmatism and presbyopia 11/17/2019 Idiopathic chronic gout of right ankle 07/16/2020 Mixed hyperlipidemia 07/28/2014 Morbid obesity due to excess calories (HCC) 06/25/2015 Obstructive sleep apnea syndrome 06/25/2015 On CPAP Plantar fasciitis 07/28/2014 Renal cyst 07/28/2014 Lt and Rt simple cyst Type 2 diabetes mellitus without complication, without long-term current use of insulin (HCC) 11/26/2015 Previous Surgical History PAST SURGICAL HISTORY Procedure Laterality Date *STRESS TEST PC 01/12/2014 Normal COLONOSCOPY 03/23/[address] Dixon: tubular adenoma x2 and a hyperplastic polyp. COLONOSCOPY 07/02/2017 Dr. Dixon, positive for polyps, repeat 3 yrs. HEART CATHETERIZATION 10/[address] Lee WNL TONSILLECTOMY HX Family History FAMILY HISTORY Problem Relation Age of Onset Colon Cancer Father 70's Stroke Father other (AAA) Father Coronary Artery Disease Brother 50's Cancer Brother pancratic Hypertension Mother Cancer Mother lung other (hemorrhagic CVA) Mother Due to anyuresim Coronary Artery Disease Brother 48 Coronary Artery Disease Paternal Grandfather 43 Coronary Artery Disease Paternal Uncle 76 No Ocular Disease No Family History Patient Allergies ALLERGIES No Known Allergies Current Medications Current Outpatient Medications on File Prior to Visit Medication Sig nitroglycerin sublingual (NITROQUICK) 0.4 mg SL tablet Dissolve 1 tablet under the tongue every 5 minutes as needed for chest pain. lisinopril (ZESTRIL) 40 mg tablet Take 1 tablet by mouth once daily. pioglitazone (ACTOS) 15 mg tablet Take 1 tablet by mouth once daily. diclofenac, EC, (VOLTAREN) 75 mg EC tablet Take 1 tablet by mouth twice daily. For pain/inflammation. Take with food. metoprolol tartrate, short acting, (LOPRESSOR) 50 mg tablet TABLET ONE TABLET BY MOUTH TWICE DAILY RABEprazole (ACIPHEX) 20 mg tablet Take 1 tablet by mouth twice daily. Blood-Glucose Meter monitoring kit Glucose Meter of Choice - Kit - Dx: Type 2 DM - Controlled E11.9 No on insuline blood sugar diagnostic (BLOOD GLUCOSE TEST) test strip Test blood sugar(s) 1 times daily. Dx: Type 2 DM - Controlled E11.9 Insulin: No colchicine 0.6 mg tablet Take one tab by mouth 3 times a day till pain stops or script finished. dicyclomine (BENTYL) 10 mg capsule 1-2 tabs every 8 hrs as needed. triamcinolone (KENALOG IN ORABASE) 0.1 % paste Apply to affected areas 2-3 times a day. Lancets lancets Test blood sugar(s) 1 times daily. Dx: Type 2 DM - Controlled E11.9 Insulin: No COMPOUNDED PRESCRIPTION Auto-PAP at 7-15 cmH2O with humidification. With appropriate supplies and a medium Respironics Rhoda View full face mask. Dx: G47.33 omega-3 fatty acids 1,000 mg cap Take 2 capsules by mouth twice daily. Take 1 capsule by mouth twice daily aspirin 81 mg chewable tablet Take 81 mg by mouth once daily. cinnamon bark (CINNAMON ORAL) Take by mouth. (Patient not taking: Reported on 11/27/2022) Current Facility-Administered Medications on File Prior to Visit Medication perflutren lipid microspheres 1.3 mL in NaCl (PF) 0.9% 10 mL injection (DEFINITY) sodium chloride 0.9 % (flush) 10 mL (BD POSIFLUSH) Social History Social History Tobacco Use Smoking status: Never Smokeless tobacco: Never Vaping Use Vaping Use: Never used Substance Use Topics Alcohol use: Yes Comment: social Drug use: No Review of Symptoms REVIEW OF SYSTEMS See hpi EXAM: BP 128/80 (BP Site: Left Arm, BP Position: Sitting, BP Cuff Size: Large Adult) Pulse 60 Temp 36.6 C (97.9 F) Resp 18 Wt (!) 170.1 kg (375 lb) BMI 53.81 kg/m General Appearance: Well appearing, alert, in no acute distress, well-hydrated, well nourished.. Lungs: Lungs clear to auscultation. No wheezing, rhonchi, rales.. Heart: RRR without murmur, gallop, or rubs. No ectopy. Health Maintenance List SHINGRIX VACCINE(1 of 2) due on 08/19/2023 COVID-19 VACCINE(4 - Booster for Pfizer series) due on 08/19/2023 INFLUENZA(Season Ended) due on 02/02/2023 BP CONTROLLED (<130/80) due on 02/10/2023 HBA1C due on 02/10/2023 COLORECTAL CANCER SCREENING due on 07/16/2023 PNEUMOCOCCAL(3 - PPSV23 if available, else PCV20) due on 08/05/2023 URINE ALBUMIN:CREATININE RATIO due on 08/11/2023 LDL CHOLESTEROL due on 08/11/2023 DILATED RETINAL EXAM due on 08/19/2023 DIABETIC FOOT EXAM due on 08/19/2023 ANNUAL PCP TEAM CHRONIC DISEASE VISIT due on 11/28/2023 PROSTATE CANCER SCREENING DISCUSSION due on 08/11/2027 DTAP,TDAP,TD(2 - Td or Tdap) due on 12/28/2027 DEPRESSION ASSESSMENT Completed HEPATITIS C SCREENING Completed HIV SCREENING Discontinued Data reviewed ASSESSMENT/PLAN: 1. Essential hypertension - ICD9: 401.9, ICD10: I10 (primary diagnosis) - Controlled - Continue current medications - Recommend home blood pressure monitoring, to bring results to next visit - Encouraged sodium restriction, DASH or Mediterranean diet - Recommend regular aerobic exercise 2. Acute left-sided low back pain without sciatica - ICD9: 724.2, ICD10: M54.50 - CYCLOBENZAPRINE 10 MG TABLET Patient to continue with further workup. Advised patient to do labs- he thought he did. We will check on this. Rina Keith PA-C documented in this encounter [facility] 11-15-2022 Note HNO ID: [id number] Author: Xiao Arias MD Service: ? Author Type: Physician Type: Progress Notes Filed: 11/16/2022 2:07 PM Note Text: Chief Complaint Patient presents with: Back Pain Fatigue HPI Carl Johnson is a 62 year old male who presents here today for evaluation intermittent SOB with exertion. In the last 4-5 days he has noted episodes of SOB with exertion. 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 Took some deep breaths for about 20-30 seconds and symptoms resolved. Admits to palpitations over the last 10 days which lasts seconds and had episode of epigastric/lower chest pain described as brief sharp pain without radiation. . Denies LE swelling, weight gain, lightheadedness/dizziness, Syncope, bleeding symptoms, diaphoresis, nausea, coughing, wheezing, hemoptysis. Notes that he drank 1/2 bottle of whiskey about 2 weeks ago in 1 sitting. Drinks 1 cup of coffee per day. 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 No hisotry of DVT or PE. Labs reviewed from 1 month ago negative for anemia and GI bleed. Past medical history, appointments, medications, allergies reviewed. Previous Medical History PAST MEDICAL HISTORY Diagnosis Date Angiokeratoma 10/28/2014 Excised right lower leg 10/2014 Arthritis of both knees 05/07/2016 Right worse than left per x-rays 05/2016 Calculus of gallbladder without cholecystitis without obstruction 07/03/2019 Chronic gastritis 11/28/2017 Chronic pain of both knees 04/19/2020 Colon polyps 03/31/2014 Dr. Dixon: colonoscopy 03/23/2014. 2 adenomas and 1 hyperplastic. Needs repeat in 3 yrs. [place] or callus 05/05/2016 Cortical age-related cataract, bilateral 11/17/2019 Diabetic eye exam (HCC) 12/10/2013 Last one done: 09/28/2018 No retinopathy. Elevated CPK 07/28/2014 W/U in past was neg. Esophageal spasm 11/05/2014 Essential hypertension 02/26/2015 Family history of brain aneurysm 06/27/2019 Gastric ulcer 07/28/201404/2008 Gastroesophageal reflux disease with esophagitis 02/26/2015 Hiatal hernia 01/07/2014 Hyperopia of both eyes with astigmatism and presbyopia 11/17/2019 Idiopathic chronic gout of right ankle 07/16/2020 Mixed hyperlipidemia 07/28/2014 Morbid obesity due to excess calories ([facility]) 06/25/2015 Obstructive sleep apnea syndrome 06/25/2015 On CPAP Plantar fasciitis 07/28/2014 Renal cyst 07/28/2014 Lt and Rt simple cyst Type 2 diabetes mellitus without complication, without long-term current use of insulin ([facility]) 11/26/2015 Previous Surgical History PAST SURGICAL HISTORY Procedure Laterality Date *STRESS TEST PC 01/12/2014 Normal COLONOSCOPY 03/23/[address] Dixon: tubular adenoma x2 and a hyperplastic polyp. COLONOSCOPY 07/02/2017 Dr. Dixon, positive for polyps, repeat 3 yrs. HEART CATHETERIZATION 10/[address] Lee WNL TONSILLECTOMY HX Family History FAMILY HISTORY Problem Relation Age of Onset Colon Cancer Father 70's Stroke Father other (AAA) Father Coronary Artery Disease Brother 50's Cancer Brother pancratic Hypertension Mother Cancer Mother lung other (hemorrhagic CVA) Mother Due to anyuresim Coronary Artery Disease Brother 48 Coronary Artery Disease Paternal Grandfather 43 Coronary Artery Disease Paternal Uncle 76 No Ocular Disease No Family History Patient Allergies ALLERGIES No Known Allergies Current Medications Current Outpatient Medications on File Prior to Visit Medication Sig febuxostat (ULORIC) 40 mg tab Take 1 tablet by mouth once daily. For gout. lisinopril (ZESTRIL) 40 mg tablet Take 1 tablet by mouth once daily. pioglitazone (ACTOS) 15 mg tablet Take 1 tablet by mouth once daily. diclofenac, EC, (VOLTAREN) 75 mg EC tablet Take 1 tablet by mouth twice daily. For pain/inflammation. Take with food. metoprolol tartrate, short acting, (LOPRESSOR) 50 mg tablet TABLET ONE TABLET BY MOUTH TWICE DAILY RABEprazole (ACIPHEX) 20 mg tablet Take 1 tablet by mouth twice daily. nitroglycerin sublingual (NITROQUICK) 0.4 mg SL tablet Dissolve 1 tablet under the tongue every 5 minutes as needed for chest pain. Blood-Glucose Meter monitoring kit Glucose Meter of Choice - Kit - Dx: Type 2 DM - Controlled E11.9 No on insuline blood sugar diagnostic (BLOOD GLUCOSE TEST) test strip Test blood sugar(s) 1 times daily. Dx: Type 2 DM - Controlled E11.9 Insulin: No dicyclomine (BENTYL) 10 mg capsule 1-2 tabs every 8 hrs as needed. Lancets lancets Test blood sugar(s) 1 times daily. Dx: Type 2 DM - Controlled E11.9 Insulin: No COMPOUNDED PRESCRIPTION Auto-PAP at 7-15 cmH2O with humidification. With appropriate supplies and a medium Respironics Rhoda View full face mask. Dx: G47.33 omega-3 fatty acids 1,000 mg cap Take 2 capsules by mouth twice daily. Take 1 capsule by mouth twice daily (more content not included)... [facility] 11-15-2022 Note HNO ID: [id number] Author: Jonathan Carias MD Service: Cardiovascular Surgery Author Type: Physician Type: Procedures Filed: 12/23/2022 10:21 AM Note Text: Patient Name: Carl Johnson : 1960 Ordering Provider: Xiao Arias Indication: R00.2 Palpitations Type of Monitor: Extended Monitoring-Zio Patch Enrollment Dates: 11/30/2022-12/02/2022 [facility] 11-15-2022 History of Presen t illness Narrative Chief Complaint Patient presents with: Back Pain Fatigue HPI Carl Johnson is a 62 year old male who presents here today for evaluation intermittent SOB with exertion. In the last 4-5 days he has noted episodes of SOB with exertion. 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 Took some deep breaths for about 20-30 seconds and symptoms resolved. Admits to palpitations over the last 10 days which lasts seconds and had episode of epigastric/lower chest pain described as brief sharp pain without radiation. . Denies LE swelling, weight gain, lightheadedness/dizziness, Syncope, bleeding symptoms, diaphoresis, nausea, coughing, wheezing, hemoptysis. Notes that he drank 1/2 bottle of whiskey about 2 weeks ago in 1 sitting. Drinks 1 cup of coffee per day. 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 No hisotry of DVT or PE. Labs reviewed from 1 month ago negative for anemia and GI bleed. Past medical history, appointments, medications, allergies reviewed. Previous Medical History PAST MEDICAL HISTORY Diagnosis Date Angiokeratoma 10/28/2014 Excised right lower leg 10/2014 Arthritis of both knees 05/07/2016 Right worse than left per x-rays 05/2016 Calculus of gallbladder without cholecystitis without obstruction 07/03/2019 Chronic gastritis 11/28/2017 Chronic pain of both knees 04/19/2020 Colon polyps 03/31/2014 Dr. Dixon: colonoscopy 03/23/2014. 2 adenomas and 1 hyperplastic. Needs repeat in 3 yrs. [place] or callus 05/05/2016 Cortical age-related cataract, bilateral 11/17/2019 Diabetic eye exam (HCC) 12/10/2013 Last one done: 09/28/2018 No retinopathy. Elevated CPK 07/28/2014 W/U in past was neg. Esophageal spasm 11/05/2014 Essential hypertension 02/26/2015 Family history of brain aneurysm 06/27/2019 Gastric ulcer 07/28/201404/2008 Gastroesophageal reflux disease with esophagitis 02/26/2015 Hiatal hernia 01/07/2014 Hyperopia of both eyes with astigmatism and presbyopia 11/17/2019 Idiopathic chronic gout of right ankle 07/16/2020 Mixed hyperlipidemia 07/28/2014 Morbid obesity due to excess calories (HCC) 06/25/2015 Obstructive sleep apnea syndrome 06/25/2015 On CPAP Plantar fasciitis 07/28/2014 Renal cyst 07/28/2014 Lt and Rt simple cyst Type 2 diabetes mellitus without complication, without long-term current use of insulin (HCC) 11/26/2015 Previous Surgical History PAST SURGICAL HISTORY Procedure Laterality Date *STRESS TEST PC 01/12/2014 Normal COLONOSCOPY 03/23/[address] Dixon: tubular adenoma x2 and a hyperplastic polyp. COLONOSCOPY 07/02/2017 Dr. Dixon, positive for polyps, repeat 3 yrs. HEART CATHETERIZATION 10/[address] Lee WNL TONSILLECTOMY HX Family History FAMILY HISTORY Problem Relation Age of Onset Colon Cancer Father 70's Stroke Father other (AAA) Father Coronary Artery Disease Brother 50's Cancer Brother pancratic Hypertension Mother Cancer Mother lung other (hemorrhagic CVA) Mother Due to anyuresim Coronary Artery Disease Brother 48 Coronary Artery Disease Paternal Grandfather 43 Coronary Artery Disease Paternal Uncle 76 No Ocular Disease No Family History Patient Allergies ALLERGIES No Known Allergies Current Medications Current Outpatient Medications on File Prior to Visit Medication Sig febuxostat (ULORIC) 40 mg tab Take 1 tablet by mouth once daily. For gout. lisinopril (ZESTRIL) 40 mg tablet Take 1 tablet by mouth once daily. pioglitazone (ACTOS) 15 mg tablet Take 1 tablet by mouth once daily. diclofenac, EC, (VOLTAREN) 75 mg EC tablet Take 1 tablet by mouth twice daily. For pain/inflammation. Take with food. metoprolol tartrate, short acting, (LOPRESSOR) 50 mg tablet TABLET ONE TABLET BY MOUTH TWICE DAILY RABEprazole (ACIPHEX) 20 mg tablet Take 1 tablet by mouth twice daily. nitroglycerin sublingual (NITROQUICK) 0.4 mg SL tablet Dissolve 1 tablet under the tongue every 5 minutes as needed for chest pain. Blood-Glucose Meter monitoring kit Glucose Meter of Choice - Kit - Dx: Type 2 DM - Controlled E11.9 No on insuline blood sugar diagnostic (BLOOD GLUCOSE TEST) test strip Test blood sugar(s) 1 times daily. Dx: Type 2 DM - Controlled E11.9 Insulin: No dicyclomine (BENTYL) 10 mg capsule 1-2 tabs every 8 hrs as needed. Lancets lancets Test blood sugar(s) 1 times daily. Dx: Type 2 DM - Controlled E11.9 Insulin: No COMPOUNDED PRESCRIPTION Auto-PAP at 7-15 cmH2O with humidification. With appropriate supplies and a medium Respironics Rhoda View full face mask. Dx: G47.33 omega-3 fatty acids 1,000 mg cap Take 2 capsules by mouth twice daily. Take 1 capsule by mouth twice daily aspirin 81 mg chewable tablet Take 81 mg by mouth once daily. celecoxib (CELEBREX) 200 mg capsule Take 1 capsule by mouth twice daily. cyclobenzaprine (FLEXERIL) 10 mg tablet Take 1 tablet by mouth twice daily as needed for muscle spasm. colchicine 0.6 mg tablet Take one tab by mouth 3 times a day till pain stops or script finished. triamcinolone (KENALOG IN ORABASE) 0.1 % paste Apply to affected areas 2-3 times a day. cinnamon bark (CINNAMON ORAL) Take by mouth. No current facility-administered medications on file prior to visit. Social History Social History Tobacco Use Smoking status: Never Smokeless tobacco: Never Vaping Use Vaping Use: Never used Substance Use Topics Alcohol use: Yes Comment: social Drug use: No Review of Symptoms REVIEW OF SYSTEMS See HPI EXAM: BP 128/90 Pulse 96 Resp 16 Ht 177.8 cm (5' 10 ) Wt (!) 169.2 kg (373 lb) SpO2 95% BMI 53.52 kg/m General Appearance: Well appearing, alert, in no acute distress, well-hydrated, well nourished. Morbidly obese. Skin: Skin color, texture, turgor normal, no suspicious rashes or lesions. Lungs: Lungs clear to auscultation. No wheezing, rhonchi, rales.. Heart: RRR without murmur, gallop, or rubs. No ectopy. Abdomen: Normal abdominal exam, Abdomen soft, non-tender. Bowel sounds normal. No masses, organomegaly. Extremities: No deformities, edema, skin discoloration, clubbing or cyanosis. Good capillary refill. Negative hohmans bilaterally. Health Maintenance List SHINGRIX VACCINE(1 of 2) due on 08/19/2023 COVID-19 VACCINE(4 - Booster for Pfizer series) due on 08/19/2023 INFLUENZA(Season Ended) due on 02/02/2023 BP CONTROLLED (<130/80) due on 02/10/2023 HBA1C due on 02/10/2023 COLORECTAL CANCER SCREENING due on 07/16/2023 PNEUMOCOCCAL(3 - PPSV23 if available, else PCV20) due on 08/05/2023 URINE ALBUMIN:CREATININE RATIO due on 08/11/2023 LDL CHOLESTEROL due on 08/11/2023 DILATED RETINAL EXAM due on 08/19/2023 DIABETIC FOOT EXAM due on 08/19/2023 ANNUAL PCP TEAM CHRONIC DISEASE VISIT due on 08/19/2023 PROSTATE CANCER SCREENING DISCUSSION due on 08/11/2027 DTAP,TDAP,TD(2 - Td or Tdap) due on 12/28/2027 DEPRESSION ASSESSMENT Completed HEPATITIS C SCREENING Completed HIV SCREENING Discontinued Data reviewed Component Latest Ref Rng & Units 10/13/2022 WBC 3.70 - 11.00 k/uL 10.41 RBC 4.20 - 6.00 m/uL 4.52 Hemoglobin 13.0 - 17.0 g/dL 13.8 Hematocrit 39.0 - 51.0 % 42.5 MCV 80.0 - 100.0 fL 94.0 MCH 26.0 - 34.0 pg 30.5 MCHC 30.5 - 36.0 g/dL 32.5 RDW-CV 11.5 - 15.0 % 14.1 Platelet Count 150 - 400 k/uL 286 MPV 9.0 - 12.7 fL 9.8 Neut% % 75.3 Abs Neut (ANC) 1.45 - 7.50 k/uL 7.85 (H) Lymph% % 15.1 Abs Lymph 1.00 - 4.00 k/uL 1.57 [place]% % 7.5 Abs [place] <0.87 k/uL 0.78 Eosin% % 1.2 Abs Eosin <0.46 k/uL 0.12 Baso% % 0.7 Abs Baso <0.11 k/uL 0.07 Immature Gran % % 0.2 IMMATURE GRANS (ABS) <0.10 k/uL <0.03 DTYPE Auto Protein, Total 6.3 - 8.0 g/dL 6.4 Albumin 3.9 - 4.9 g/dL 4.1 Calcium 8.5 - 10.2 mg/dL 9.2 Bilirubin, Total 0.2 - 1.3 mg/dL 0.4 Alkaline Phosphatase 38 - 113 U/L 61 AST 14 - 40 U/L 33 ALT 10 - 54 U/L 43 Glucose 74 - 99 mg/dL 132 (H) BUN 9 - 24 mg/dL 20 Creatinine 0.73 - 1.22 mg/dL 1.06 Sodium 136 - 144 mmol/L 138 Potassium 3.7 - 5.1 mmol/L 4.5 Chloride 97 - 105 mmol/L 103 CO2 22 - 30 mmol/L 27 Anion Gap 9 - 18 mmol/L 8 (L) eGFR >=60 mL/min/1.73m 78 CRP <0.9 mg/dL 0.4 TSH 0.270 - 4.200 mIU/L 1.590 Free T4 0.9 - 1.7 ng/dL 1.6 Occult Blood, Stool Negative Negative Calprotectin, Fecal 0 - 50 mg/kg 30.7 EKG: NSR at 62 bpm, LAD, Cannot rule out anterior infarct age undetermined. Abnormal EKG. Unchanged when compared to 03/2020. ASSESSMENT/PLAN: 1. OCAMPO (dyspnea on exertion) - ICD9: 786.09, ICD10: R06.09 (primary diagnosis) Intermittent OCAMPO with cardiac risk factors including: Morbid Obesity with BMI>50, HTN, hyperlipidemia, DM, LEROY. EKG today unchanged compared to 2019. No evidence of DVT on exam. Will obtain CXR and cardiac workup as ordered. Red flags for re-assessment reviewed with patient in detail. Patient wanting to check with insurance before having Zio patch applied to work up palpitations. - ECG COMPLETE - XR CHEST 2V FRONTAL/LAT - NITROGLYCERIN 0.4 MG SUBLINGUAL TABLET - CBC + DIFF - COMP METABOLIC PANEL - NT PRO BNP - NM CARDIAC PERF STRESS/PHARM - ECHO - PERFLUTREN LIPID MICROSPHERES 1.1 MG/ML INJECTION IN NS 10 ML - SODIUM CHLORIDE 0.9 % (FLUSH) INJECTION SYRINGE 2. Palpitations - ICD9: 785.1, ICD10: R00.2 See above. - TSH BLD - MAGNESIUM BLD - ECHO - PERFLUTREN LIPID MICROSPHERES 1.1 MG/ML INJECTION IN NS 10 ML - SODIUM CHLORIDE 0.9 % (FLUSH) INJECTION SYRINGE - OUTSIDE VENDOR CARDIAC OUTPATIENT EXTENDED RHYTHM RECORDING (WITHOUT TELEMETRY) 3. Epigastric pain - ICD9: 789.06, ICD10: R10.13 Possible cardiac etiology. See above. I spent a total of 40 minutes on the date of the service which included preparing to see the patient, [id number] patient care, completing clinical documentation, obtaining and/or reviewing separately obtained history, performing a medically appropriate examination, counseling and educating the patient/family/caregiver, ordering medications, tests, or procedures, independently interpreting results (not separately reported), and communicating results to the patient/family/caregiver. Xiao Arias MD documented in this encounter [facility] 10-13-2022 Note HNO ID: [id number] Author: Misha Cruz LPN Service: ? Author Type: ? Type: Progress Notes Filed: 10/15/2022 4:57 PM Note Text: Scan on 10/13/2022 11:48 AM by External Provider, OJRDANA: Consultation - GI [facility] 10-13-2022 History of Presen t illness Narrative Scan on 10/13/2022 11:48 AM by External Provider, MARKC: Consultation - GI documented in this encounter [facility] 08-18-2022 Note HNO ID: [id number] Author: Sera Gallagher OD Service: ? Author Type: GYNECOLOGIST Type: Progress Notes Filed: 08/18/2022 1:02 PM Note Text: 1. Type 2 diabetes mellitus without retinopathy (HCC) Risk of diabetic changes and vision loss can be minimized by tight control of blood sugar, blood pressure, and cholesterol levels. 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 Encouraged patient to call the office immediately with any changes to vision or visual concerns. Advised to not wait until the next scheduled exam. 2. Combined forms of age-related cataract of both eyes Mild-monitor 3. Hypermetropia, bilateral 4. Regular astigmatism of both eyes Finalized spec rx Monitor yearly Sera Gallagher, OD August 18, 2022 1:01 PM [facility] 08-18-2022 Note HNO ID: [id number] Author: Brigette Lopez MD Service: ? Author Type: Physician Type: Progress Notes Filed: 08/18/2022 11:43 AM Note Text: Chief Complaint Patient presents with: Physical HPI Carl Johnson is a 62 year old male who presents here today for Physical. Patient with Hx of LEROY, DM 2, HTN, GERD, hyperlipidemia, morbid obesity, idiopathic gout, bilateral arthritic knee pain as well as those reviewed and addressed below and in ROS. Patient has been doing ok. Trying to hold off on knee replacement until he is 63. Past medical history, appointments, medications, allergies reviewed. Previous Medical History PAST MEDICAL HISTORY Diagnosis Date Angiokeratoma 10/28/2014 Excised right lower leg 10/2014 Arthritis of both knees 05/07/2016 Right worse than left per x-rays 05/2016 Calculus of gallbladder without cholecystitis without obstruction 07/03/2019 Chronic gastritis 11/28/2017 Chronic pain of both knees 04/19/2020 Colon polyps 03/31/2014 Dr. Dixon: colonoscopy 03/23/2014. 2 adenomas and 1 hyperplastic. Needs repeat in 3 yrs. [place] or callus 05/05/2016 Cortical age-related cataract, bilateral 11/17/2019 Diabetic eye exam (HCC) 12/10/2013 Last one done: 09/28/2018 No retinopathy. Elevated CPK 07/28/2014 W/U in past was neg. Esophageal spasm 11/05/2014 Essential hypertension 02/26/2015 Family history of brain aneurysm 06/27/2019 Gastric ulcer 07/28/201404/2008 Gastroesophageal reflux disease with esophagitis 02/26/2015 Hiatal hernia 01/07/2014 Hyperopia of both eyes with astigmatism and presbyopia 11/17/2019 Idiopathic chronic gout of right ankle 07/16/2020 Mixed hyperlipidemia 07/28/2014 Morbid obesity due to excess calories (HCC) 06/25/2015 Obstructive sleep apnea syndrome 06/25/2015 On CPAP Plantar fasciitis 07/28/2014 Renal cyst 07/28/2014 Lt and Rt simple cyst Type 2 diabetes mellitus without complication, without long-term current use of insulin (HCC) 11/26/2015 Previous Surgical History PAST SURGICAL HISTORY Procedure Laterality Date *STRESS TEST PC 01/12/2014 Normal COLONOSCOPY 03/23/[address] Dixon: tubular adenoma x2 and a hyperplastic polyp. COLONOSCOPY 07/02/2017 Dr. Dixon, positive for polyps, repeat 3 yrs. HEART CATHETERIZATION 10/[address] Lee WNL TONSILLECTOMY HX Family History FAMILY HISTORY Problem Relation Age of Onset Colon Cancer Father 70's Stroke Father other (AAA) Father Coronary Artery Disease Brother 50's Cancer Brother pancratic Hypertension Mother Cancer Mother lung other (hemorrhagic CVA) Mother Due to anyuresim Coronary Artery Disease Brother 48 Coronary Artery Disease Paternal Grandfather 43 Coronary Artery Disease Paternal Uncle 76 No Ocular Disease No Family History Patient Allergies ALLERGIES No Known Allergies Current Medications Current Outpatient Medications on File Prior to Visit Medication Sig febuxostat (ULORIC) 40 mg tab Take 1 tablet by mouth once daily. For gout. lisinopril (ZESTRIL, PRINIVIL) 40 mg tablet Take 1 tablet by mouth once daily. pioglitazone (ACTOS) 15 mg tablet Take 1 tablet by mouth once daily. diclofenac, EC, (VOLTAREN) 75 mg EC tablet Take 1 tablet by mouth twice daily. For pain/inflammation. Take with food. metoprolol tartrate, short acting, (LOPRESSOR) 50 mg tablet TABLET ONE TABLET BY MOUTH TWICE DAILY cyclobenzaprine (FLEXERIL) 10 mg tablet Take 1 tablet by mouth twice daily as needed for muscle spasm. celecoxib (CELEBREX) 200 mg capsule Take 1 capsule by mouth twice daily. RABEprazole (ACIPHEX) 20 mg tablet Take 1 tablet by mouth twice daily. nitroglycerin sublingual (NITROQUICK) 0.4 mg SL tablet Dissolve 1 tablet under the tongue every 5 minutes as needed for chest pain. Blood-Glucose Meter monitoring kit Glucose Meter of Choice - Kit - Dx: Type 2 DM - Controlled E11.9 No on insuline blood sugar diagnostic (BLOOD GLUCOSE TEST) test strip Test blood sugar(s) 1 times daily. Dx: Type 2 DM - Controlled E11.9 Insulin: No colchicine 0.6 mg tablet Take one tab by mouth 3 times a day till pain stops or script finished. (Patient not taking: Reported on 02/10/2022) predniSONE (DELTASONE) 20 mg tablet 2 tabs a day by mouth for the next 5 days. (do not start till after colonoscopy completed) dicyclomine (BENTYL) 10 mg capsule 1-2 tabs every 8 hrs as needed. triamcinolone (KENALOG IN ORABASE) 0.1 % paste Apply to affected areas 2-3 times a day. (Patient not taking: Reported on 02/10/2022) cinnamon bark (CINNAMON ORAL) Take by mouth. Lancets lancets Test blood sugar(s) 1 times daily. Dx: Type 2 DM - Controlled E11.9 Insulin: No COMPOUNDED PRESCRIPTION Auto-PAP at 7-15 cmH2O with humidification. With appropriate supplies and a medium Respironics Rhoda View full face mask. Dx: G47.33 omega-3 fatty acids 1,000 mg cap Take 2 capsules by mouth twice daily. Take 1 capsule by mout (more content not included)... [facility] 08-18-2022 Miscellaneous Notes Images from the original note were not included. Approved [id number] Prior authorization approved Payer: [employer] Case: [id number], Status: Approved, Coverage Starts on: 08/18/2022 12:00:00 AM, Coverage Ends on: 08/18/2023 12:00:00 AM. Approval Details Authorization number: [id number] Authorized from August 18, 2022 to August 18, 2023 Electronic appeal: Not supported View History Medication Being Authorized celecoxib (CELEBREX) 200 mg capsule Take 1 capsule by mouth twice daily. Dispense: 60 capsule Refills: 5 Start: 08/18/2022 BHAVYA completed electronically. documented in this encounter [facility] 08-18-2022 Instructions Brigette Lopez MD - 08/18/2022 8:18 AM EDT Please check with insurance to see if the shingrix vaccine for the prevention of shingles is covered. Please get labs and urine test done on or after 02/02/2023 prior to your next visit. documented in this encounter [facility] 08-18-2022 History of Presen t illness Narrative Images from the original note were not included. Chief Complaint Patient presents with: Physical HPI Carl Johnson is a 62 year old male who presents here today for Physical. Patient with Hx of LEROY, DM 2, HTN, GERD, hyperlipidemia, morbid obesity, idiopathic gout, bilateral arthritic knee pain as well as those reviewed and addressed below and in ROS. Patient has been doing ok. Trying to hold off on knee replacement until he is 63. Past medical history, appointments, medications, allergies reviewed. Previous Medical History PAST MEDICAL HISTORY Diagnosis Date Angiokeratoma 10/28/2014 Excised right lower leg 10/2014 Arthritis of both knees 05/07/2016 Right worse than left per x-rays 05/2016 Calculus of gallbladder without cholecystitis without obstruction 07/03/2019 Chronic gastritis 11/28/2017 Chronic pain of both knees 04/19/2020 Colon polyps 03/31/2014 Dr. Dixon: colonoscopy 03/23/2014. 2 adenomas and 1 hyperplastic. Needs repeat in 3 yrs. [place] or callus 05/05/2016 Cortical age-related cataract, bilateral 11/17/2019 Diabetic eye exam (HCC) 12/10/2013 Last one done: 09/28/2018 No retinopathy. Elevated CPK 07/28/2014 W/U in past was neg. Esophageal spasm 11/05/2014 Essential hypertension 02/26/2015 Family history of brain aneurysm 06/27/2019 Gastric ulcer 07/28/201404/2008 Gastroesophageal reflux disease with esophagitis 02/26/2015 Hiatal hernia 01/07/2014 Hyperopia of both eyes with astigmatism and presbyopia 11/17/2019 Idiopathic chronic gout of right ankle 07/16/2020 Mixed hyperlipidemia 07/28/2014 Morbid obesity due to excess calories (HCC) 06/25/2015 Obstructive sleep apnea syndrome 06/25/2015 On CPAP Plantar fasciitis 07/28/2014 Renal cyst 07/28/2014 Lt and Rt simple cyst Type 2 diabetes mellitus without complication, without long-term current use of insulin (HCC) 11/26/2015 Previous Surgical History PAST SURGICAL HISTORY Procedure Laterality Date *STRESS TEST PC 01/12/2014 Normal COLONOSCOPY 03/23/[address] Dixon: tubular adenoma x2 and a hyperplastic polyp. COLONOSCOPY 07/02/2017 Dr. Dixon, positive for polyps, repeat 3 yrs. HEART CATHETERIZATION 10/[address] Lee WNL TONSILLECTOMY HX Family History FAMILY HISTORY Problem Relation Age of Onset Colon Cancer Father 70's Stroke Father other (AAA) Father Coronary Artery Disease Brother 50's Cancer Brother pancratic Hypertension Mother Cancer Mother lung other (hemorrhagic CVA) Mother Due to anyuresim Coronary Artery Disease Brother 48 Coronary Artery Disease Paternal Grandfather 43 Coronary Artery Disease Paternal Uncle 76 No Ocular Disease No Family History Patient Allergies ALLERGIES No Known Allergies Current Medications Current Outpatient Medications on File Prior to Visit Medication Sig febuxostat (ULORIC) 40 mg tab Take 1 tablet by mouth once daily. For gout. lisinopril (ZESTRIL, PRINIVIL) 40 mg tablet Take 1 tablet by mouth once daily. pioglitazone (ACTOS) 15 mg tablet Take 1 tablet by mouth once daily. diclofenac, EC, (VOLTAREN) 75 mg EC tablet Take 1 tablet by mouth twice daily. For pain/inflammation. Take with food. metoprolol tartrate, short acting, (LOPRESSOR) 50 mg tablet TABLET ONE TABLET BY MOUTH TWICE DAILY cyclobenzaprine (FLEXERIL) 10 mg tablet Take 1 tablet by mouth twice daily as needed for muscle spasm. celecoxib (CELEBREX) 200 mg capsule Take 1 capsule by mouth twice daily. RABEprazole (ACIPHEX) 20 mg tablet Take 1 tablet by mouth twice daily. nitroglycerin sublingual (NITROQUICK) 0.4 mg SL tablet Dissolve 1 tablet under the tongue every 5 minutes as needed for chest pain. Blood-Glucose Meter monitoring kit Glucose Meter of Choice - Kit - Dx: Type 2 DM - Controlled E11.9 No on insuline blood sugar diagnostic (BLOOD GLUCOSE TEST) test strip Test blood sugar(s) 1 times daily. Dx: Type 2 DM - Controlled E11.9 Insulin: No colchicine 0.6 mg tablet Take one tab by mouth 3 times a day till pain stops or script finished. (Patient not taking: Reported on 02/10/2022) predniSONE (DELTASONE) 20 mg tablet 2 tabs a day by mouth for the next 5 days. (do not start till after colonoscopy completed) dicyclomine (BENTYL) 10 mg capsule 1-2 tabs every 8 hrs as needed. triamcinolone (KENALOG IN ORABASE) 0.1 % paste Apply to affected areas 2-3 times a day. (Patient not taking: Reported on 02/10/2022) cinnamon bark (CINNAMON ORAL) Take by mouth. Lancets lancets Test blood sugar(s) 1 times daily. Dx: Type 2 DM - Controlled E11.9 Insulin: No COMPOUNDED PRESCRIPTION Auto-PAP at 7-15 cmH2O with humidification. With appropriate supplies and a medium Respironics Rhoda View full face mask. Dx: G47.33 omega-3 fatty acids 1,000 mg cap Take 2 capsules by mouth twice daily. Take 1 capsule by mouth twice daily aspirin 81 mg chewable tablet Take 81 mg by mouth once daily. No current facility-administered medications on file prior to visit. Social History Social History Tobacco Use Smoking status: Never Smokeless tobacco: Never Vaping Use Vaping Use: Never used Substance Use Topics Alcohol use: Yes Comment: social Drug use: No Review of Symptoms REVIEW OF SYSTEMS GENERAL: No weight loss, malaise or fevers HEENT: Negative for frequent or significant headaches, No changes in hearing or vision, no nose bleeds or other nasal problems NECK: Negative for lumps, goiter, pain and significant neck swelling RESPIRATORY: Negative for frequent cough, hemoptysis, wheezing, COPD, dyspnea or shortness of breath CARDIOVASCULAR: Negative for chest pain, leg swelling, hypertension, CHF or palpitations GI: No nausea, vomiting, or diarrhea, No heartburn or reflux symptoms, and no blood : No history of dysuria, blood MUSCULOSKELETAL: see HPI SKIN: Negative for lesions, rash, and itching PSYCH: Negative for sleep disturbance, mood disorder and recent psychosocial stressors HEMATOLOGY/LYMPHOLOGY: Negative for prolonged bleeding, bruising easily or swollen nodes ENDOCRINE: Negative for cold or heat intolerance, symptoms of low BS's NEURO: No history of headaches, syncope, paralysis, seizures or tremors EXAM: BP 130/86 (BP Site: Left Arm, BP Position: Sitting, BP Cuff Size: Large Adult) Pulse 60 Resp 16 Ht 177.8 cm (5' 10 ) Wt (!) 167.8 kg (370 lb) BMI 53.09 kg/m Last 4 Encounter Wt Readings: Date: Wt: 08/18/2022 167.8 kg (370 lb) 02/10/2022 176 kg (388 lb) 06/10/2021 131.1 kg (289 lb 1.9 oz) 03/31/2021 173.7 kg (383 lb) General Appearance: Well appearing, alert, in no acute distress, well-hydrated, well nourished. and Morbidly obese. Skin: Skin color, texture, turgor normal, no suspicious rashes or lesions. Head: Normocephalic, no masses, lesions, tenderness or abnormalities. Eyes: Anicteric sclera. Pupils are equally round and reactive to light. Extraocular movements are intact. . Ears: External ears, TM's normal, canals clear. Neck: Supple, no adenopathy; thyroid symmetric, normal size, no bruits. Lungs: Lungs clear to auscultation. No wheezing, rhonchi, rales.. Heart: RRR without murmur, gallop, or rubs. No ectopy. Abdomen: Normal abdominal exam, Abdomen soft, non-tender. Bowel sounds normal. No masses, organomegaly. Extremities: No deformities, edema, clubbing or cyanosis. Good capillary refill. Slight venous stasis changes. Musculoskeletal: Muscular strength intact, No joint swelling, deformity, or tenderness. Peripheral Pulses: Normal. Neurologic: Gait normal. Reflexes normal and symmetric. Sensation grossly intact.. Genitalia: Normal, Penis normal. No urethral discharge. Scrotum normal to palpation. No hernia.. Rectal: Normal exam. Prostate slightly enlarged but smooth firm capsule. Diabetic Foot Exam: Feet: Shoes and socks removed, no deformities, ulcers, calluses, normal distal pulses, sensitive to 10 gm microfilament, and vibratory exam within normal limits Skin: warm, dry, and no callouses or ulcer Vascular Pulses: Normal SEMMES-SHAYNA MONOFILAMENT TESTING Left Foot Right Foot Dorsal Surface Intact Dorsal Surface Intact Plantar Surface Intact Plantar Surface Intact Health Maintenance List SHINGRIX VACCINE(1 of 2) Never done COVID-19 VACCINE(4 - Booster for Pfizer series) due on 07/03/2021 INFLUENZA(1) due on 02/02/2022 DILATED RETINAL EXAM due on 05/06/2022 DEPRESSION ASSESSMENT Never done DIABETIC FOOT EXAM due on 02/10/2023 ANNUAL PCP TEAM CHRONIC DISEASE VISIT due on 02/10/2023 BP CONTROLLED (<130/80) due on 02/10/2023 HBA1C due on 02/10/2023 COLORECTAL CANCER SCREENING due on 07/16/2023 PNEUMOCOCCAL(3 - PPSV23 if available, else PCV20) due on 08/05/2023 URINE ALBUMIN:CREATININE RATIO due on 08/11/2023 LDL CHOLESTEROL due on 08/11/2023 PROSTATE CANCER SCREENING DISCUSSION due on 08/11/2027 DTAP,TDAP,TD(2 - Td or Tdap) due on 12/28/2027 HEPATITIS C SCREENING Completed HIV SCREENING Discontinued Data reviewed Component Latest Ref Rng & Units 03/25/2021 06/10/2021 02/08/2022 08/10/2022 WBC 3.70 - 11.00 k/uL 10.55 9.43 9.62 RBC 4.20 - 6.00 m/uL 4.65 4.70 4.83 Hemoglobin 13.0 - 17.0 g/dL 13.6 14.1 14.4 Hematocrit 39.0 - 51.0 % 43.0 43.3 45.2 MCV 80.0 - 100.0 fL 92.5 92.1 93.6 MCH 26.0 - 34.0 pg 29.2 30.0 29.8 MCHC 30.5 - 36.0 g/dL 31.6 32.6 31.9 RDW-CV 11.5 - 15.0 % 14.6 14.4 13.8 Platelet Count 150 - 400 k/uL 273 248 256 MPV 9.0 - 12.7 fL 9.9 9.9 9.7 Neut% % 67.7 69.6 71.5 Abs Neut (ANC) 1.45 - 7.50 k/uL 7.15 6.56 6.87 Lymph% % 19.9 18.1 17.9 Abs Lymph 1.00 - 4.00 k/uL 2.10 1.71 1.72 [place]% % 9.7 9.5 8.5 Abs [place] <0.87 k/uL 1.02 (H) 0.90 (H) 0.82 Eosin% % 2.1 1.8 1.2 Abs Eosin <0.46 k/uL 0.22 0.17 0.12 Baso% % 0.6 1.0 0.7 Abs Baso <0.11 k/uL 0.06 0.09 0.07 Nucleated Reds 0 /100 WBC 0.0 Absolute nRBC <0.01 k/uL <0.01 Diff Type Auto Diff Immature Gran % % 0.2 IMMATURE GRANS (ABS) <0.10 k/uL <0.03 DTYPE Auto Auto Protein, Total 6.3 - 8.0 g/dL 6.6 6.3 6.4 Albumin 3.9 - 4.9 g/dL 4.6 4.4 4.5 Calcium 8.5 - 10.2 mg/dL 9.4 9.4 9.2 Bilirubin, Total 0.2 - 1.3 mg/dL 0.3 0.4 0.5 Alkaline Phosphatase 38 - 113 U/L 61 63 60 AST 14 - 40 U/L 31 31 29 ALT 10 - 54 U/L 31 30 40 Glucose 74 - 99 mg/dL 97 97 123 (H) BUN 9 - 24 mg/dL 14 13 24 Creatinine 0.73 - 1.22 mg/dL 1.02 0.91 0.93 Sodium 136 - 144 mmol/L 138 138 137 Potassium 3.7 - 5.1 mmol/L 4.6 4.1 4.6 Chloride 97 - 105 mmol/L 102 101 101 CO2 22 - 30 mmol/L 26 24 26 Anion Gap 9 - 18 mmol/L 10 13 10 eGFR- >60 >60 eGFR-All Other Races . >60 >60 eGFR >=60 mL/min/1.73m 92 Color Yellow Yellow Yellow Clarity Clear Clear Clear Glucose, Urine Negative Negative Negative Bilirubin, Urine Negative Negative Negative Ketones, Urine Negative Negative Negative Specific [place], Ur 1.005 - 1.030 1.025 1.025 Hemoglobin/Blood,Ur Negative Negative Negative pH, Urine 5.0 - 8.0 5.5 5.5 Protein, Urine Negative Negative Negative Urobilinogen 0.2-1.0 EU/dL 0.2 EU/dL 0.2 EU/dL Nitrites Negative Negative Negative Leukest Negative Negative Negative WBC, Urine 0-5 /HPF 0-5 /HPF 0-5 /HPF RBC, Urine 0-3 /HPF 0-3 /HPF 0-3 /HPF Bacteria None Seen /HPF Few (A) Epithelial Cells /HPF Moderate Total Cholesterol, Nonfasting <200 mg/dL 151 180 197 Triglycerides, Nonfasting <150 mg/dL 179 (H) 267 (H) 144 HDL Cholesterol, Nonfasting >39 mg/dL 42 45 54 LDL Cholesterol, Nonfasting <100 mg/dL 73 82 114 (H) Non HDL Cholesterol, Nonfasting <130 mg/dL 109 135 (H) 143 (H) VLDL Cholesterol, Nonfasting <30 mg/dL 36 (H) 53 (H) 29 Total Chol/HDL Ratio, Nonfasting <5.10 mg/dL 3.60 4.00 3.65 LDL/HDL Ratio, Nonfasting <2.54 mg/dL 1.74 1.82 2.11 Creatinine, Ur Random (UCRR) 46.8 - 314.5 mg/dL 158.4 106.7 Albumin, Urine Random mg/L <12.0 <12.0 Albumin/Creat Ratio <30 mg/g <8 <11 Hemoglobin A1C 4.3 - 5.6 % 6.0 (H) 6.0 (H) 5.7 (H) Estimated Average Glucose mg/dL 126 126 117 Vitamin B12 232 - 1,245 pg/mL 1,423 (H) 687 PSA <2.60 ng/mL 0.58 0.72 Uric Acid 4.0 - 8.1 mg/dL 4.5 5.0 Magnesium 1.7 - 2.3 mg/dL 1.9 2.1 A/P ASSESSMENT/PLAN: 1. Well adult exam - ICD9: V70.0, ICD10: Z00.00 (primary diagnosis) - Counseled on healthy diet and regular exercise - Discussed need for and benefit of weight loss. BMI 53.09 kg/(m^2) - Follow up for annual exam in one year 2. Type 2 diabetes mellitus without complication, without long-term current use of insulin (HCC) - ICD9: 250.00, ICD10: E11.9 - Controlled - Improving control - Continue current medications - Counseled on healthy diet and regular exercise - Discussed need for and benefit of weight loss. BMI 53.09 kg/(m^2) 3. Type 2 diabetes mellitus without retinopathy (HCC) - ICD9: 250.00, ICD10: E11.9 - as above and seeing optho next. 4. Diabetic eye exam (HCC) - ICD9: V72.0, 250.00, ICD10: Z01.00, E11.9 Seeing optho next. 5. Essential hypertension - ICD9: 401.9, ICD10: I10 - good control - Continue current medication(s) - Recommended regular aerobic exercise. - Recommend home blood pressure monitoring, to bring results in on next visit - Goal of BP <130/80 6. Mixed hyperlipidemia - ICD9: 272.2, ICD10: E78.2 - suboptimal control - Encouraged following a low fat, low cholesterol diet. - Discussed the benefits of regular aerobic exercise and weight loss. - Encouraged following a low carbohydrate, healthy oil intake diet. - Continue current therapy. 7. Gastroesophageal reflux disease with esophagitis without hemorrhage - ICD9: 530.81, 530.10, ICD10: K21.00 - Continue treatment with Aciphex 20 mg QD 8. Morbid obesity due to excess calories (HCC) - ICD9: 278.01, ICD10: E66.01 Weight decreasing - Behavioral intervention 9. Obstructive sleep apnea syndrome - ICD9: 327.23, ICD10: G47.33 - benefiting from use of CPAP 10. 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 - ICD9: 274.02, ICD10: M1A.0710 - good control with Tx. 11. Arthritis of both knees - ICD9: 716.96, ICD10: M17.0 Cont - DICLOFENAC SODIUM 75 MG TABLET,DELAYED RELEASE - seeing ortho 12. [place] or callus - ICD9: 700, ICD10: L84 - none on exam today. The following approved medication requests have been transmitted electronically. Requested Prescriptions Signed Prescriptions Disp Refills febuxostat (ULORIC) 40 mg tab 30 tablet 5 Sig: Take 1 tablet by mouth once daily. For gout. lisinopril (ZESTRIL) 40 mg tablet 90 tablet 1 Sig: Take 1 tablet by mouth once daily. pioglitazone (ACTOS) 15 mg tablet 90 tablet 1 Sig: Take 1 tablet by mouth once daily. diclofenac, EC, (VOLTAREN) 75 mg EC tablet 180 tablet 1 Sig: Take 1 tablet by mouth twice daily. For pain/inflammation. Take with food. metoprolol tartrate, short acting, (LOPRESSOR) 50 mg tablet 180 tablet 1 Sig: TABLET ONE TABLET BY MOUTH TWICE DAILY celecoxib (CELEBREX) 200 mg capsule 60 capsule 5 Sig: Take 1 capsule by mouth twice daily. RABEprazole (ACIPHEX) 20 mg tablet 180 tablet 1 Sig: Take 1 tablet by mouth twice daily. F/u 6 months routine check A1c, Lipid prior. Brigette Lopez MD documented in this encounter [facility] 06-01-2022 Miscellaneous Notes Addended by: RINA CASTELAN on: 06/01/2022 02:54 PM Modules accepted: Orders Addended by: TANISHA YANG on: 06/01/2022 02:38 PM Modules accepted: Orders Patient has been identified by name and date of : Yes Requested Prescriptions Pending Prescriptions Disp Refills febuxostat (ULORIC) 40 mg tab 30 tablet 5 Sig: Take 1 tablet by mouth once daily. For gout. lisinopril (ZESTRIL, PRINIVIL) 40 mg tablet 90 tablet 1 Sig: Take 1 tablet by mouth once daily. pioglitazone (ACTOS) 15 mg tablet 90 tablet 1 Sig: Take 1 tablet by mouth once daily. diclofenac, EC, (VOLTAREN) 75 mg EC tablet 180 tablet 1 Sig: Take 1 tablet by mouth twice daily. For pain/inflammation. Take with food. RX INSTRUCTIONS: Patient aware RX will be sent to pharmacy. No need to notify patient. Tanisha Yang MA Ottoniel: 02/2022 Nov: 08/2022 Last refill: 12/2021 documented in this encounter [facility] 02-10-2022 History of Presen t illness Narrative Chief Complaint No chief complaint on file. HPI Carl Johnson is a 61 year old male who presents here today for Medication follow up. Patient with Hx of LEROY, DM 2, HTN, GERD, hyperlipidemia, morbid obesity bilateral arthritic knee pain as well as those reviewed and addressed below and in ROS. Patient doing well. Still with knee pain seeing ortho. Wanted to try the Gel shots but insurance denied. Past medical history, appointments, medications, allergies reviewed. Previous Medical History PAST MEDICAL HISTORY Diagnosis Date Angiokeratoma 10/28/2014 Excised right lower leg 10/2014 Arthritis of both knees 05/07/2016 Right worse than left per x-rays 05/2016 Calculus of gallbladder without cholecystitis without obstruction 07/03/2019 Chronic gastritis 11/28/2017 Chronic pain of both knees 04/19/2020 Colon polyps 03/31/2014 Dr. Dixon: colonoscopy 03/23/2014. 2 adenomas and 1 hyperplastic. Needs repeat in 3 yrs. [place] or callus 05/05/2016 Cortical age-related cataract, bilateral 11/17/2019 Current use of proton pump inhibitor 11/26/2017 Diabetic eye exam (HCC) 12/10/2013 Last one done: 09/28/2018 No retinopathy. Elevated CPK 07/28/2014 W/U in past was neg. Esophageal spasm 11/05/2014 Essential hypertension 02/26/2015 Family history of brain aneurysm 06/27/2019 Gastric ulcer 07/28/201404/2008 Gastroesophageal reflux disease with esophagitis 02/26/2015 Hiatal hernia 01/07/2014 Hyperopia of both eyes with astigmatism and presbyopia 11/17/2019 Idiopathic chronic gout of right ankle 07/16/2020 Mixed hyperlipidemia 07/28/2014 Morbid obesity due to excess calories ([facility]) 06/25/2015 Obstructive sleep apnea syndrome 06/25/2015 On CPAP Plantar fasciitis 07/28/2014 Renal cyst 07/28/2014 Lt and Rt simple cyst Type 2 diabetes mellitus without complication, without long-term current use of insulin ([facility]) 11/26/2015 Previous Surgical History PAST SURGICAL HISTORY Procedure Laterality Date *STRESS TEST PC 01/12/2014 Normal COLONOSCOPY 03/23/[address] Dixon: tubular adenoma x2 and a hyperplastic polyp. COLONOSCOPY 07/02/2017 Dr. Dixon, positive for polyps, repeat 3 yrs. HEART CATHETERIZATION 10/[address] Lee WNL TONSILLECTOMY HX Family History FAMILY HISTORY Problem Relation Age of Onset Colon Cancer Father 70's Stroke Father other (AAA) Father Coronary Artery Disease Brother 50's Cancer Brother pancratic Hypertension Mother Cancer Mother lung other (hemorrhagic CVA) Mother Due to anyuresim Coronary Artery Disease Brother 48 Coronary Artery Disease Paternal Grandfather 43 Coronary Artery Disease Paternal Uncle 76 No Ocular Disease No Family History Patient Allergies ALLERGIES No Known Allergies Current Medications Current Outpatient Medications on File Prior to Visit Medication Sig RABEprazole (ACIPHEX) 20 mg tablet Take 1 tablet by mouth twice daily. febuxostat (ULORIC) 40 mg tab Take 1 tablet by mouth once daily. For gout. lisinopril (ZESTRIL, PRINIVIL) 40 mg tablet Take 1 tablet by mouth once daily. pioglitazone (ACTOS) 15 mg tablet Take 1 tablet by mouth once daily. diclofenac, EC, (VOLTAREN) 75 mg EC tablet Take 1 tablet by mouth twice daily. For pain/inflammation. Take with food. metoprolol tartrate, short acting, (LOPRESSOR) 50 mg tablet TABLET ONE TABLET BY MOUTH TWICE DAILY nitroglycerin sublingual (NITROQUICK) 0.4 mg SL tablet Dissolve 1 tablet under the tongue every 5 minutes as needed for chest pain. cyclobenzaprine (FLEXERIL) 10 mg tablet Take 1 tablet by mouth twice daily as needed for muscle spasm. Blood-Glucose Meter monitoring kit Glucose Meter of Choice - Kit - Dx: Type 2 DM - Controlled E11.9 No on insuline blood sugar diagnostic (BLOOD GLUCOSE TEST) test strip Test blood sugar(s) 1 times daily. Dx: Type 2 DM - Controlled E11.9 Insulin: No colchicine 0.6 mg tablet Take one tab by mouth 3 times a day till pain stops or script finished. predniSONE (DELTASONE) 20 mg tablet 2 tabs a day by mouth for the next 5 days. (do not start till after colonoscopy completed) dicyclomine (BENTYL) 10 mg capsule 1-2 tabs every 8 hrs as needed. triamcinolone (KENALOG IN ORABASE) 0.1 % paste Apply to affected areas 2-3 times a day. cinnamon bark (CINNAMON ORAL) Take by mouth. Lancets lancets Test blood sugar(s) 1 times daily. Dx: Type 2 DM - Controlled E11.9 Insulin: No COMPOUNDED PRESCRIPTION Auto-PAP at 7-15 cmH2O with humidification. With appropriate supplies and a medium Respironics Rhoda View full face mask. Dx: G47.33 omega-3 fatty acids (FISH OIL CONCENTRATE) 1,000 mg cap Take 2 capsules by mouth twice daily. Take 1 capsule by mouth twice daily aspirin 81 mg chewable tablet Take 81 mg by mouth once daily. No current facility-administered medications on file prior to visit. Social History Social History Tobacco Use Smoking status: Never Smokeless tobacco: Never Vaping Use Vaping Use: Never used Substance Use Topics Alcohol use: Yes Comment: social Drug use: No Review of Symptoms REVIEW OF SYSTEMS GENERAL: No weight loss, malaise or fevers NECK: Negative for lumps, goiter, pain and significant neck swelling RESPIRATORY: Negative for cough, hemoptysis, wheezing, COPD, dyspnea or shortness of breath CARDIOVASCULAR: Negative for chest pain, leg swelling, hypertension, CHF or palpitations GI: No nausea, vomiting, or diarrhea and No heartburn or reflux symptoms : No history of dysuria, blood ENDOCRINE: Negative for symptoms of low BS's NEURO: No history of headaches, syncope, paralysis, seizures or tremors EXAM: BP 134/88 (BP Site: Right Arm, BP Position: Sitting, BP Cuff Size: Large Adult) Pulse 76 Resp 16 Wt (!) 176 kg (388 lb) BMI 55.67 kg/m Last 6 Encounter Wt Readings: Date: Wt: 02/10/2022 176 kg (388 lb) 06/10/2021 131.1 kg (289 lb 1.9 oz) 03/31/2021 173.7 kg (383 lb) 07/15/2020 176.4 kg (389 lb) 04/19/2020 177.4 kg (391 lb) 04/14/2020 181.4 kg (400 lb) General Appearance: Well appearing, alert, in no acute distress, well-hydrated, well nourished. and Morbidly obese. Neck: Supple, no adenopathy; thyroid symmetric, normal size, no bruits. Lungs: Lungs clear to auscultation. No wheezing, rhonchi, rales.. Heart: RRR without murmur, gallop, or rubs. No ectopy. Abdomen: Normal abdominal exam, Abdomen soft, non-tender. Bowel sounds normal. No masses, organomegaly. Extremities: No deformities, edema, skin discoloration, clubbing or cyanosis. Good capillary refill. . Musculoskeletal: Muscular strength intact, No joint swelling, deformity, or tenderness. Peripheral Pulses: Normal. Neurologic: Gait normal. Reflexes normal and symmetric. Sensation to light touch and crainal nerves 2-12 intact.. Health Maintenance List HIV SCREENING Never done SHINGRIX VACCINE(1 of 2) Never done BP CONTROLLED (<130/80) due on 04/14/2021 DIABETIC FOOT EXAM due on 07/15/2021 COVID-19 VACCINE(4 - Booster for Pfizer series) due on 09/06/2021 INFLUENZA(1) due on 02/02/2022 URINE ALBUMIN:CREATININE RATIO due on 03/25/2022 DILATED RETINAL EXAM due on 05/06/2022 ANNUAL PCP TEAM CHRONIC DISEASE VISIT due on 06/10/2022 HBA1C due on 08/08/2022 DEPRESSION SCREENING due on 11/06/2022 LDL CHOLESTEROL due on 02/08/2023 COLORECTAL CANCER SCREENING due on 07/16/2023 PNEUMOCOCCAL(3 - PPSV23 or PCV20) due on 08/05/2023 PROSTATE CANCER SCREENING DISCUSSION due on 03/25/2026 DTAP,TDAP,TD(2 - Td or Tdap) due on 12/28/2027 HEPATITIS C SCREENING Completed Data reviewed Component Latest Ref Rng & Units 03/25/2021 02/08/2022 Total Cholesterol, Nonfasting <200 mg/dL 151 180 Triglycerides, Nonfasting <150 mg/dL 179 (H) 267 (H) HDL Cholesterol, Nonfasting >39 mg/dL 42 45 LDL Cholesterol, Nonfasting <100 mg/dL 73 82 Non HDL Cholesterol, Nonfasting <130 mg/dL 109 135 (H) VLDL Cholesterol, Nonfasting <30 mg/dL 36 (H) 53 (H) Total Chol/HDL Ratio, Nonfasting <5.10 mg/dL 3.60 4.00 LDL/HDL Ratio, Nonfasting <2.54 mg/dL 1.74 1.82 Hemoglobin A1C 4.3 - 5.6 % 6.0 (H) 6.0 (H) Estimated Average Glucose mg/dL 126 126 A/P ASSESSMENT/PLAN: 1. Type 2 diabetes mellitus without complication, without long-term current use of insulin (HCC) - ICD9: 250.00, ICD10: E11.9 (primary diagnosis) Controlled. - Continue current medications - Encouraged regular aerobic exercise and weight loss - BP goal of <130/80 - LDL goal of <100 2. Type 2 diabetes mellitus without retinopathy (HCC) - ICD9: 250.00, ICD10: E11.9 Controlled. - Continue current medications - Encouraged regular aerobic exercise and weight loss - BP goal of <130/80 - LDL goal of <100 3. Mixed hyperlipidemia - ICD9: 272.2, ICD10: E78.2 - good control - Encouraged following a low fat, low cholesterol diet. - Discussed the benefits of regular aerobic exercise and weight loss. - Encouraged following a low carbohydrate, healthy oil intake diet. - Continue current therapy. 4. Essential hypertension - ICD9: 401.9, ICD10: I10 - good control - Continue current medication(s) - Recommended regular aerobic exercise. - Recommend home blood pressure monitoring, to bring results in on next visit - Goal of BP <130/80 5. Gastroesophageal reflux disease with esophagitis without hemorrhage - ICD9: 530.81, 530.10, ICD10: K21.00 - Continue treatment with Aciphex 20 mg BID 6. Diabetic eye exam (HCC) - ICD9: V72.0, 250.00, ICD10: Z01.00, E11.9 - up to date 7. Obstructive sleep apnea syndrome - ICD9: 327.23, ICD10: G47.33 - benefiting from nightly CPAP 8. Morbid obesity due to excess calories (HCC) - ICD9: 278.01, ICD10: E66.01 Weight increasing - Behavioral intervention 9. 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 F/u 6 months WAE check CMP, lipid, UA, micro albumin, A1c, PSA, CBC, B12, Mg, uric Acid Brigette Lopez MD documented in this encounter [facility] 01-01-2022 Miscellaneous Notes The following approved medication requests have been transmitted electronically. Signed Prescriptions Disp Refills RABEprazole (ACIPHEX) 20 mg tablet 180 tablet 1 Sig: Take 1 tablet by mouth twice daily. HOWARD: No Brigette Lopez MD See pt MC message. According to the chart, we had not received a request from the pharmacy so not sure how pharmacy is saying the request was denied. Pending Prescriptions Disp Refills RABEPRAZOLE 20 MG TABLET,DELAYED RELEASE 180 tablet 1 Sig: Take 1 tablet by mouth twice daily. HOWARD: No OTTONIEL 03/31/21 NOV 02/10/22 Please review and advise. Gaston Marie LPN documented in this encounter [facility] 12-06-2021 Miscellaneous Notes Patient sent refill request which was routed to pcp Altagracia Thomason Ma documented in this encounter [facility] 11-28-2021 Miscellaneous Notes The following approved medication requests have been transmitted electronically. Signed Prescriptions Disp Refills diclofenac, EC, (VOLTAREN) 75 mg EC tablet 180 tablet 1 Sig: Take 1 tablet by mouth twice daily. For pain/inflammation. Take with food. HOWARD: No Rina Keith PA-C Last refill 03/31/21 Qty: 180 with 1 refill OTTONIEL 06/10/[address] Juana CHIU 02/10/22 Misha Cruz LPN documented in this encounter [facility] Work Phone: Evaluation noteThere may be information available, but it has not been provided by the sender.[facility] Work Phone: Evaluation note* Diagnosis Arthritis of both knees Unspecified arthropathy, lower leg [facility] Diagnosis Type 2 diabetes mellitus without complication, without long-term current use of insulin (HCC)- Primary Type 2 diabetes mellitus without retinopathy (HCC) Type II or unspecified type diabetes mellitus without mention of complication, not stated as uncontrolled Mixed hyperlipidemia Essential hypertension Unspecified essential hypertension Gastroesophageal reflux disease with esophagitis without hemorrhage Diabetic eye exam (HCC) Type II or unspecified type diabetes mellitus without mention of complication, not stated as uncontrolled Obstructive sleep apnea syndrome Obstructive sleep apnea (adult) (pediatric) Morbid obesity due to excess calories (HCC) 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 Medication management Encounter for long-term (current) use of other medications Prostate cancer screening Special screening for malignant neoplasm of prostate [facility] Diagnosis Arthritis of both knees Unspecified arthropathy, lower leg [facility] Diagnosis Well adult exam- Primary Routine general medical examination at a [facility] facility Type 2 diabetes mellitus without complication, without long-term current use of insulin (HCC) Type 2 diabetes mellitus without retinopathy (HCC) Type II or unspecified type diabetes mellitus without mention of complication, not stated as uncontrolled Diabetic eye exam (HCC) Type II or unspecified type diabetes mellitus without mention of complication, not stated as uncontrolled Essential hypertension Unspecified essential hypertension Mixed hyperlipidemia Gastroesophageal reflux disease with esophagitis without hemorrhage Morbid obesity due to excess calories (HCC) Obstructive sleep apnea syndrome Obstructive sleep apnea (adult) (pediatric) 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 Arthritis of both knees Unspecified arthropathy, lower leg [place] or callus Corns and callosities [facility] Diagnosis OCAMPO (dyspnea on exertion)- Primary Other dyspnea and respiratory abnormality Palpitations Epigastric pain Abdominal pain, epigastric [facility] Diagnosis Essential hypertension- Primary Unspecified essential hypertension Acute left-sided low back pain without sciatica [facility] Diagnosis Obstructive sleep apnea syndrome- Primary Obstructive sleep apnea (adult) (pediatric) [facility] Diagnosis Type 2 diabetes mellitus without retinopathy (HCC)- Primary Type II or unspecified type diabetes mellitus without mention of complication, not stated as uncontrolled Type 2 diabetes mellitus without complication, without long-term current use of insulin (HCC) Diabetic eye exam (HCC) Type II or unspecified type diabetes mellitus without mention of complication, not stated as uncontrolled Essential hypertension Unspecified essential hypertension Mixed hyperlipidemia Gastroesophageal reflux disease with esophagitis without hemorrhage Ascending aorta dilatation (HCC) Thoracic aortic ectasia 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 Morbid obesity due to excess calories (HCC) Calculus of gallbladder without cholecystitis without obstruction Calculus of gallbladder without mention of cholecystitis or obstruction Need for vaccination Need for prophylactic vaccination and inoculation against unspecified single disease Skin ulcer, unspecified ulcer stage (HCC) Prostate disorder Unspecified disorder of prostate Medication management Encounter for long-term (current) use of other medications [facility] Diagnosis Acute left-sided low back pain without sciatica [facility] Diagnosis OCAMPO (dyspnea on exertion) Other dyspnea and respiratory abnormality [facility] Outpatient Procedure (Urgent) - Authorized Specialty Diagnoses / Procedures Referred By Contac t Referred To Contact [facility] [place] Diagnoses OCAMPO (dyspnea on exertion) Palpitations Procedures ECHO ECHO TTHRC R-T 2D W/WOM-MODE COMPL SPEC&COLR D Xiao Arias MD [address] [id number] [facility] [place] [address] [place] [address] Referral ID Status Reason Start Date Expiration Date Visits Requested Visits Authorized [id number] Authorized Auto-Generat ed Referral 11/15/2022 11/15/2023 1 1 * Diagnostic Procedure Only (Urgent) - Authorized Specialty Diagnoses / Procedures Referred By Contact Referred To Contact [facility] Diagnoses OCAMPO (dyspnea on exertion) Procedures NM CARDIAC PERF STRESS/PHARM MYOCARDIAL SPECT MULTIPLE STUDIES Xiao Arias MD [address] [place] [address] [facility] [address] [place] [address] Referral ID Status Reason Start Date Expiration Date Visits Requested Visits Authorized [id number] Authorized Auto-Generat ed Referral 11/15/2022 12/15/2023 1 1 * Outpatient Procedure (Routine) - Pending Review Specialty Diagnoses / Procedures Referred By Contac t Referred To Contact [facility] [place] Diagnoses OCAMPO (dyspnea on exertion) Procedures ECG COMPLETE ECG ROUTINE ECG W/LEAST 12 LDS W/I&R Xiao Arias MD [address] [place] [address] [facility] [place] [address] [place] [address] Referral ID Status Reason Start Date Expiration Date Visits Requested Visits Authorized [id number] Pending Review Auto-Generat ed Referral 11/15/2022 11/15/2023 1 1 [facility] for referral (narrative)* Diagnostic Procedure Only (Urgent) - Closed Specialty Diagnoses / Procedures Referred By Contact Referred To Contact [facility] Diagnoses OCAMPO (dyspnea on exertion) Procedures NM CARDIAC PERF STRESS/PHARM MYOCARDIAL SPECT MULTIPLE STUDIES Xiao Arias MD [address] [place] [address] [facility] [address] [place], [place] [id number] Referral ID Status Reason Start Date Expiration Date V isits Requested Visits Authorized [id number] Closed Auto-Generate d Referral 11/15/2022 12/15/2023 1 1 [facility] for visit Narrative* Diagnostic Procedure Only (Urgent) - Closed Specialty Diagnoses / Procedures Referred By Contact Referred To Contact [facility] Diagnoses OCAMPO (dyspnea on exertion) Procedures NM CARDIAC PERF STRESS/PHARM MYOCARDIAL SPECT MULTIPLE STUDIES Xiao Arias MD [address] [place] [address] [facility] [address] [place], [place] [id number] Referral ID Status Reason Start Date Expiration Date V isits Requested Visits Authorized [id number] Closed Auto-Generate d Referral 11/15/2022 12/15/2023 1 1 [facility] Summary Purpose Family History No Family History Records FoundThere may be information available, but it has not been provided by the sender.No Family History Records FoundNo Family History Records FoundNo Family History Records Found Advance Directives No Advanced Directives Records FoundDocuments on File Type Date Recorded Patient 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 Expl anation Advance Directive(s) 04/03/2020 7:20 PM Chief Complaint Chief Complaint Description Start Date right knee pain Preliminary chief co mplaint data, not yet signed by the author as of Reason for Referral Specialty Diagnoses / Procedures Referred By Contac t Referred To Contact Rina Keith PA-C [address] [place] [address] Referral ID Status Reason Start Date Expiration Date V isits Requested Visits Authorized [id number] Authorized 06/01/2022 06/01/2023 1 1 Referral ID Status Reason Start Date Expiration Date V isits Requested Visits Authorized [id number] Authorized 06/01/2022 06/01/2023 1 1 Specialty Diagnoses / Procedures Referred By Contac t Referred To Contact Brigette Lopez MD [address] [place] [address] Referral ID Status Reason Start Date Expiration Date V isits Requested Visits Authorized [id number] Authorized 08/18/2022 08/18/2023 1 1 Medications Administered Section Inactive Administered Medications - up to 3 most recent administrations Medication Order MAR Action Action Date Dose Rate Site regadenoson 0.4 mg injection (LEXISCAN) 0.4 mg, INTRAVENOUS, ONCE, 1 dose, On Sun04/13/23 at 1030, Give 0.4 mg (5 mL) over ~10 seconds, followed immediately by a 5 mL saline flush. Wait 10-20 seconds, then administer the radionuclide myocardial perfusion imaging agent. Given 04/13/2023 8:20 AM EST 0.4 mg Additional Source Comments (unrecognized sect ion and content) No Status Records FoundNo Status Records FoundNo Status Records FoundNo Status Records Found INFORMATION SOURCE (unrecogn ized section and content) DATE CREATED AUTHOR AUTHOR'S ORGANIZ ATION 02/18/2023 [facility] DATE CREATED AUTHOR AUTHOR'S ORGANIZ ATION 04/14/2023 [facility] DATE CREATED AUTHOR AUTHOR'S ORGANIZ ATION 05/09/2023 [facility] Reason for Visit (unrecogniz ed section and content) Reason Onset Date Comments Opened In Error 01/23/2022 Reason Comments Recheck Reason Comments Insurance Authorization Reason Comments Physical Reason Comments Back Pain Fatigue Reason Comments Recheck Blood pressure and b ack pain Reason Comments Lab Orders Reason Comments Results Reason Comments Continuous Positive Airway Pressure Vero ce approval Reason Comments 6 Month Exam Reason Onset Date Comments Refill Request 03/14/2023 Reason Comments Reminder Call Reason Comments Insurance Authorization [employer] Source Comments (unrecognize d section and content) In the event this informatio n is protected by the Federal Confidentiality of Alcohol and Drug Abuse Patient Records regulations: The Federal rules restrict any use of the information to criminally investigate or prosecute any alcohol or drug abuse patient.[facility] NorthIn the event this information is protected by the Federal Confidentiality of Alcohol and Drug Abuse Patient Records regulations: The Federal rules restrict any use of the information to criminally investigate or prosecute any alcohol or drug abuse patient.[facility] NorthIn the event this information is protected by the Federal Confidentiality of Alcohol and Drug Abuse Patient Records regulations: The Federal rules restrict any use of the information to criminally investigate or prosecute any alcohol or drug abuse patient.[facility] NorthIn the event this information is protected by the Federal Confidentiality of Alcohol and Drug Abuse Patient Records regulations: The Federal rules restrict any use of the information to criminally investigate or prosecute any alcohol or drug abuse patient.[facility] the event this information is protected by the Federal Confidentiality of Alcohol and Drug Abuse Patient Records regulations: The Federal rules restrict any use of the information to criminally investigate or prosecute any alcohol or drug abuse patient.[facility] NorthIn the event this information is protected by the Federal Confidentiality of Alcohol and Drug Abuse Patient Records regulations: The Federal rules restrict any use of the information to criminally investigate or prosecute any alcohol or drug abuse patient.[facility] NorthIn the event this information is protected by the Federal Confidentiality of Alcohol and Drug Abuse Patient Records regulations: The Federal rules restrict any use of the information to criminally investigate or prosecute any alcohol or drug abuse patient.[facility]In the event this information is protected by the Federal Confidentiality of Alcohol and Drug Abuse Patient Records regulations: The Federal rules restrict any use of the information to criminally investigate or prosecute any alcohol or drug abuse patient.[facility] NorthIn the event this information is protected by the Federal Confidentiality of Alcohol and Drug Abuse Patient Records regulations: The Federal rules restrict any use of the information to criminally investigate or prosecute any alcohol or drug abuse patient.[facility] NorthIn the event this information is protected by the Federal Confidentiality of Alcohol and Drug Abuse Patient Records regulations: The Federal rules restrict any use of the information to criminally investigate or prosecute any alcohol or drug abuse patient.[facility] NorthIn the event this information is protected by the Federal Confidentiality of Alcohol and Drug Abuse Patient Records regulations: The Federal rules restrict any use of the information to criminally investigate or prosecute any alcohol or drug abuse patient.[facility] NorthIn the event this information is protected by the Federal Confidentiality of Alcohol and Drug Abuse Patient Records regulations: The Federal rules restrict any use of the information to criminally investigate or prosecute any alcohol or drug abuse patient.[facility] NorthIn the event this information is protected by the Federal Confidentiality of Alcohol and Drug Abuse Patient Records regulations: The Federal rules restrict any use of the information to criminally investigate or prosecute any alcohol or drug abuse patient.[facility] NorthIn the event this information is protected by the Federal Confidentiality of Alcohol and Drug Abuse Patient Records regulations: The Federal rules restrict any use of the information to criminally investigate or prosecute any alcohol or drug abuse patient.[facility] NorthIn the event this information is protected by the Federal Confidentiality of Alcohol and Drug Abuse Patient Records regulations: The Federal rules restrict any use of the information to criminally investigate or prosecute any alcohol or drug abuse patient.[facility] NorthIn the event this information is protected by the Federal Confidentiality of Alcohol and Drug Abuse Patient Records regulations: The Federal rules restrict any use of the information to criminally investigate or prosecute any alcohol or drug abuse patient.[facility] NorthIn the event this information is protected by the Federal Confidentiality of Alcohol and Drug Abuse Patient Records regulations: The Federal rules restrict any use of the information to criminally investigate or prosecute any alcohol or drug abuse patient.[facility] NorthIn the event this information is protected by the Federal Confidentiality of Alcohol and Drug Abuse Patient Records regulations: The Federal rules restrict any use of the information to criminally investigate or prosecute any alcohol or drug abuse patient.[facility] NorthIn the event this information is protected by the Federal Confidentiality of Alcohol and Drug Abuse Patient Records regulations: The Federal rules restrict any use of the information to criminally investigate or prosecute any alcohol or drug abuse patient.[facility] NorthIn the event this information is protected by the Federal Confidentiality of Alcohol and Drug Abuse Patient Records regulations: The Federal rules restrict any use of the information to criminally investigate or prosecute any alcohol or drug abuse patient.[facility] NorthIn the event this information is protected by the Federal Confidentiality of Alcohol and Drug Abuse Patient Records regulations: The Federal rules restrict any use of the information to criminally investigate or prosecute any alcohol or drug abuse patient.[facility] NorthIn the event this information is protected by the Federal Confidentiality of Alcohol and Drug Abuse Patient Records regulations: The Federal rules restrict any use of the information to criminally investigate or prosecute any alcohol or drug abuse patient.[facility] NorthIn the event this information is protected by the Federal Confidentiality of Alcohol and Drug Abuse Patient Records regulations: The Federal rules restrict any use of the information to criminally investigate or prosecute any alcohol or drug abuse patient.[facility] NorthIn the event this information is protected by the Federal Confidentiality of Alcohol and Drug Abuse Patient Records regulations: The Federal rules restrict any use of the information to criminally investigate or prosecute any alcohol or drug abuse patient.[facility] NorthIn the event this information is protected by the Federal Confidentiality of Alcohol and Drug Abuse Patient Records regulations: The Federal rules restrict any use of the information to criminally investigate or prosecute any alcohol or drug abuse patient.[facility] NorthIn the event this information is protected by the Federal Confidentiality of Alcohol and Drug Abuse Patient Records regulations: The Federal rules restrict any use of the information to criminally investigate or prosecute any alcohol or drug abuse patient.[facility] Care Teams (unrecognized sec tion and content) Auto Body Straightener Relationship Specialty Start Date End Date Brigette Lopez MD [address] [place] [address] PCP - General Family Practice 06/03/13 Oscar Dixon MD Consulting Gastroenterology 01/05/14 Auto Body Straightener Relationship Specialty Start Date End Date Brigette Lopez MD [address] [place] [address] PCP - General Family Practice 06/03/13 Oscar Dixon MD Consulting Gastroenterology 01/05/14 Auto Body Straightener Relationship Specialty Start Date End Date Brigette Lopez MD [address] [place] [address] PCP - General Family Practice 06/03/13 Oscar Dixon MD Consulting Gastroenterology 01/05/14 Auto Body Straightener Relationship Specialty Start Date End Date Brigette Lopez MD [address] [place] [address] PCP - General Family Practice 06/03/13 Oscar Dixon MD Consulting Gastroenterology 01/05/14 Auto Body Straightener Relationship Specialty Start Date End Date Brigette Lopez MD [address] [place] [address] PCP - General Family Medicine 06/03/13 Oscar Dixon MD Consulting Gastroenterology 01/05/14 Auto Body Straightener Relationship Specialty Start Date End Date Brigette Lopez MD [address] [place] [address] PCP - General Family Medicine 06/03/13 Oscar Dixon MD [address] [place] [address] Consulting Gastroenterology 01/05/14 Auto Body Straightener Relationship Specialty Start Date End Date Brigette Lopez MD [address] [place] [address] PCP - General Family Medicine 06/03/13 Oscar Dixon MD [address] [place] [address] Consulting Gastroenterology 01/05/14 Auto Body Straightener Relationship Specialty Start Date End Date Brigette Lopez MD [address] [place] [address] PCP - General Family Medicine 06/03/13 Oscar Dixon MD [address] [place] [address] Consulting Gastroenterology 01/05/14 Auto Body Straightener Relationship Specialty Start Date End Date Brigette Lopez MD [address] [place] [address] PCP - General Family Medicine 06/03/13 Oscar Dixon MD [address] [place] [address] Consulting Gastroenterology 01/05/14 Auto Body Straightener Relationship Specialty Start Date End Date Brigette Lopez MD [address] [place] [address] PCP - General Family Medicine 06/03/13 Oscar Dixon MD [address] [place] [address] Consulting Gastroenterology 01/05/14 Auto Body Straightener Relationship Specialty Start Date End Date Brigette Lopez MD [address] [place] [address] PCP - General Family Medicine 06/03/13 Oscar Dixon MD [address] [place] [address] Consulting Gastroenterology 01/05/14 Auto Body Straightener Relationship Specialty Start Date End Date Brigette Lopez MD [address] [place] [address] PCP - General Family Medicine 06/03/13 Oscar Dixon MD [address] [place] [address] Consulting Gastroenterology 01/05/14 Auto Body Straightener Relationship Specialty Start Date End Date Brigette Lopez MD [address] [place] [address] PCP - General Family Medicine 06/03/13 Oscar Dixon MD [address] [place] [address] Consulting Gastroenterology 01/05/14 Auto Body Straightener Relationship Specialty Start Date End Date Brigette Lopez MD [address] [place] [address] PCP - General Family Medicine 06/03/13 Oscar Dixon MD [address] [place] [address] Consulting Gastroenterology 01/05/14 Auto Body Straightener Relationship Specialty Start Date End Date Brigette Lopez MD [address] [place] [address] PCP - General Family Medicine 06/03/13 Oscar Dixon MD [address] [place] [address] Consulting Gastroenterology 01/05/14 Auto Body Straightener Relationship Specialty Start Date End Date Brigette Lopez MD [address] [place] [address] PCP - General Family Medicine 06/03/13 Oscar Dixon MD [address] [place] [address] Consulting Gastroenterology 01/05/14 Auto Body Straightener Relationship Specialty Start Date End Date Brigette Lopez MD [address] [facility], [place] [address] PCP - General Family Medicine 06/03/13 Oscar Dixon MD [address] [place] [address] Consulting Gastroenterology 01/05/14 Auto Body Straightener Relationship Specialty Start Date End Date Brigette Lopez MD [address] [facility], [place] [address] PCP - General Family Medicine 06/03/13 Oscar Dixon MD [address] [place] [address] Consulting Gastroenterology 01/05/14 Auto Body Straightener Relationship Specialty Start Date End Date Brigette Lopez MD [address] [facility], [place] [address] PCP - General Family Medicine 06/03/13 Oscar Dixon MD [address] [place] [address] Consulting Gastroenterology 01/05/14 Auto Body Straightener Relationship Specialty Start Date End Date Brigette Lopez MD [address] [place] [address] PCP - General Family Medicine 06/03/13 Oscar Dixon MD [address] [place] [address] Consulting Gastroenterology 01/05/14 Auto Body Straightener Relationship Specialty Start Date End Date Brigette Lopez MD [address] [place] [address] PCP - General Family Medicine 06/03/13 Oscar Dixon MD [address] [place] [address] Consulting Gastroenterology 01/05/14 FOR RECORDS PERTAINING TO PATIENTS WHO ARE OR HAVE BEEN ENROLLED IN A CHEMICAL DEPENDENCY/SUBSTANCEABUSE PROGRAM, SOME INFORMATION MAY BE OMITTED. This clinical summary was aggregated from multiple sources. Caution should be exercised in using it in the provision of clinical care. This summary normalizes information from multiple sources, and as a consequence, information in this document may materially change the coding, format and clinical context of patient data. In addition, data may be omitted in some cases. CLINICAL DECISIONS SHOULD BE BASED ON THE PRIMARY CLINICAL RECORDS. [employer]. provides no warranty or guarantee of the accuracy or completeness of information in this document.
--- NOTE | 2023-05-11 09:38 | CL.D_ITS ---
Patient Name: MATHIEU RODRIGUEZ Study Date: 05/11/2023 Performing: Chloe Hernandez MD Ht: 70 inches 177.8 cm : 1960 Wt: 365 lbs 165.56 kg Age: 62 Gender: male BSA: 2.7 PROCEDURE(S) PERFORMED DC02-(77092)LHC/COR CLINICAL PROFILE AND INDICATIONS Indications: Suspected CAD Heart Failure: None Stress/Imaging Stress Test w/SPECT MPI: Yes Result: Positive Low RiskStress Test with SPECT MPI: Positive Low Risk CONCLUSIONS 40% Mid LAD 30% Prox RPLV RECOMMENDATIONS Risk factor modification Medical therapy DESCRIPTION OF PROCEDURE The patient arrived to the procedure lab. The risks and benefits of the procedure as well as a full description of our services here and current unavailability of surgical backup were fully explained to the patient and/or their significant other prior to the catheterization. The Timeout was completed, verifying the correct patient and procedure. The patient's procedural site was prepped and draped in the usual fashion. Local anesthetic was given subcutaneously to right radial region with Lidocaine 2%. Using a modified Seldinger technique, arterial access was obtained via the right radial artery, a 5Fr sheath was inserted. Right Coronary Artery selective angiography was then performed in multiple views using a 5 Fr. 4.0 [place] catheter. Left Coronary Artery selective angiography was performed in multiple views using a 5 Fr. 4.0 [place] catheter.The arterial sheath was pulled and a TR Band was applied for hemostasis 10 ml of air CORONARY ANGIOGRAPHY DOMINANCE: Right Dominant LEFT MAIN: Angiographically normal LEFT ANTERIOR DESCENDING ARTERY: LAD: Calcified 40% Mid lesion in LAD CIRCUMFLEX ARTERY: Angiographically normal RIGHT CORONARY ARTERY: RCA: Luminal Irregularities 10% Distal lesion in RCA COMPLICATIONS No Complications PROCEDURE MEDICATIONS Fentanyl 50 mcg IV Versed 1 mg IV Oxygen: 2 L/min via nasal cannula Heparin given IA 05/11/2023 09:14:57 Verapamil 2.5mg, Ntg 200mcgs, 2000 units of Heparin given IA 05/11/2023 09:14:57 IV Bolus: .9 NaCl 300 ml total 05/11/2023 09:32:50 SUMMARY OF HEMODYNAMIC DATA Time AIR REST ECG 07:30:59 AO 147/95 (117) SA 09:22:19 09:37:22 Signed By Chloe Hernandez MD On 05/11/2023 09:37:56 Chloe Hernandez MD
--- NOTE | 2023-05-11 11:01 | CT_ITS ---
STUDY: CTA CHEST REASON FOR EXAM: Male, 62 years old. Eval aorta. Hypertension. RADIATION DOSAGE (If Supplied By Facility): CTDIvol = ( 17.49 ) mGy, DLP = ( 757.79 ) mGycm TECHNIQUE: The examination was performed with the intravenous administration of IV 100mL Isovue-370. Post-processing of the angiographic images was performed, with multiplanar reformation and 3D reconstruction. Individualized dose optimization techniques were used for this CT. COMPARISON: Comparison is made with prior chest radiograph dated May 02, 2023. FINDINGS: Normal enhancement of the main pulmonary artery and right and left pulmonary arteries. Normal enhancement of the bilateral peripheral pulmonary arteries. There is no demonstrated pulmonary embolism. Normal thoracic aorta and visualized great vessels. There is no demonstrated aortic dissection. There are calcifications of the coronary arteries. Normal mediastinum. Normal hilar regions. Normal visualized trachea and bronchi. The lungs are well expanded. Normal pulmonary parenchyma. Normal pleura. Normal chest wall structures. There are degenerative changes of thoracic spine. Normal visualized upper abdomen. CT/CTA Chest W/WO Contrast IMPRESSION: Coronary artery calcification. The ascending thoracic aorta is not dilated. Electronically Signed: Sebas Peacock MD at 13:10 [facility] ,
== END 2023-05-11 11:01 | disposition home or self-care (01) ==
PROVIDERS: PCP Family Medicine; Referring Provider Internal Medicine Cardiovascular Disease; Visit Provider Internal Medicine Cardiovascular Disease
DX: I25.10 Atherosclerotic heart disease of native coronary artery without angina pectoris (principal); I77.810 Thoracic aortic ectasia; E66.01 Morbid (severe) obesity due to excess calories; E11.9 Type 2 diabetes mellitus without complications; I10 Essential (primary) hypertension; Z87.891 Personal history of nicotine dependence; Z79.899 Other long term (current) drug therapy; Z79.82 Long term (current) use of aspirin; E78.5 Hyperlipidemia, unspecified
CPT/HCPCS: 71275; 93454; 99152; 99153; J7030; Q9967; A4216; C1769; C1894

== ENCOUNTER → 2024-02-20 | Outpatient (CLI) | payer MEDICARE, OTHER, SELFPAY ==
--- NOTE | 2024-02-20 14:41 | STRESSREP ---
Stress Test Report Date: 02/20/2024 Procedure: Pharmacologic stress nuclear imaging study Indications: Chest pain Consent: Per the patient Procedure: The patient underwent pharmacologic (Regadenoson 0.4mg ) evaluation with a peak heart rate of 96 beats per minute (61%predicted maximal heart rate) and a peak blood pressure of 126/78 mmHg. The baseline ECG demonstrated sinus rhythm. The peak pharmacologic ECG demonstrated no ischemic changes. There were no cardiac dysrhythmias pretest, during pharmacologic infusion, or recovery. There was no complaint of chest discomfort during pharmacologic infusion or recovery. The patient was injected with 15.0 millicuries of technetium 99m Cardiolite and subsequently rest SPECT Cardiolite nuclear imaging was obtained in the horizontal long, vertical long, and short axis views. The patient underwent pharmacologic (Regadenoson) evaluation. The patient was injected with 44.8 millicuries of technetium 99m Cardiolite and subsequently stress SPECT Cardiolite nuclear imaging was obtained in the horizontal long, vertical long, and short axis views. A gated Cardiolite study at peak stress was obtained. The examination was stopped secondary to completion of protocol. Rest and stress SPECT Cardiolite nuclear imaging status post realignment, normalization, and attenuation correction demonstrate small fixed defect of the apex. With normal wall motion, consider artifact. There is end systolic thickening and brightening. The gated Cardiolite study demonstrates myocardial thickening and inward wall motion. The reported LVEF is 69%. Impression: 1. Pharmacologic (Regadenoson) evaluation 2. Peak pharmacologic ECG with no ischemic changes. 3. There were no cardiac dysrhythmias pretest, during pharmacologic infusion, or recovery. 5. Rest and stress SPECT Cardiolite nuclear imaging demonstrate a fixed apical defect however with normal wall motion, consider artifact. 6. The gated Cardiolite study reports an LVEF of 69%. This note was generated with [employer] software. It may contain incorrect words, spelling, and punctuation that were not noted in checking the note before signing.
== END | disposition home or self-care (01) ==
LOC: CVS 06:36
PROVIDERS: PCP Family Medicine; Referring Provider Family Medicine; Visit Provider Family Medicine
DX: I25.10 Atherosclerotic heart disease of native coronary artery without angina pectoris (principal); I25.83 Coronary atherosclerosis due to lipid rich plaque; R07.9 Chest pain, unspecified
CPT/HCPCS: 78452; 93017; A9500; A4216; J2785